=== PATIENT | male | born 1955 | race Caucasian/White ===

== ENCOUNTER 2025-08-16 16:27 | Inpatient (IN) | payer MEDICARE, OTHER ==
[~2025-08-16] VITALS: Ht 170.2 cm; Wt 99.1 kg
[~2025-08-16 16:27] MED LIST: AML5T PO; AMLO1TAB22 PO; BENA40TA71 PO; GABA-1250 PO; HYDR-2598 PO; INSLANTI SC; METF-372 PO; METO-159 PO; TAMS0.4C39 PO; ZOLP10TA6 PO
--- NOTE | 2025-08-16 18:31 | ED.PDOC ---
GI ASSESSMENT HPI Comments 70-year-old male who came to ER for nausea and vomiting. Patient states he has been having episodes of nausea and vomiting for the past 5 days. Was having dry heaving. Earlier today started having diarrhea as well. Chief Complaint: Nausea/Vomiting Time Seen by MD: 18:31 Primary Care Provider: Frida TRIANA Reviewed Notes: Nurses Notes Allergies: Coded Allergies: NO KNOWN ALLERGIES (Unverified , 04/09/11) Home Meds Active Scripts Amlodipine Besylate (NORVASC TABLET) 5 Mg Tb, 5 MG PO DAILY, #30 TAB Prov:JOCELYN SEXTON M.D. 04/23/14 Amlodipine Besylate (Amlodipine Besylate) 5 Mg Tab, 1 TAB PO DAILY, #30 TAB 5 Refills Prov:JOCELYN SEXTON M.D. 04/23/14 Benazepril Hcl (Benazepril Hcl) 40 Mg Tab, 80 MG PO DAILY, #30 Prov:BECKI GIORDANO N.P. 04/22/14 Reported Medications Tamsulosin Hcl (Tamsulosin Hcl) 0.4 Mg Cap, 0.4 MG PO QPM for 30 Days, MG 04/22/14 Metformin Hydrochloride (Metformin Hcl) 1,000 Mg Tab, 1 TAB PO BID, #60 TAB 5 Refills 04/22/14 Zolpidem Tartrate (Zolpidem Tartrate) 10 Mg Tab, 10 MG PO QPM, #90 04/22/14 Gabapentin (Gabapentin) 300 Mg Cap, 300 MG PO TID, #270 04/22/14 Metoprolol Tartrate (Metoprolol Tartrate) 100 Mg Tab, 100 MG PO BID, #180 04/22/14 Insulin Glargine (Lantus) 100 Units/Ml Vial, 50 UNITS SC QAM, #40 04/22/14 Hydrocodone-Acetaminophen (Hydrocodone/Acetaminophen) 1 Tab Tab, 1 TAB PO PRN, #60 04/22/14 Information Source: Patient Mode of Arrival: EMS Timing: Hours Duration: Since onset Past Medical History PAST MEDICAL HISTORY: DM, HTN Past Medical History (Other): Left foot diabetic ulcer Surgical History: Denies all surgeries Surgical History (Other): Cervical neck surgery, knee surgery Family History Family History: No family hx of DM Social History Smoker: Quit Greater Than 1 Year Alcohol: Occasionally Drugs: Denies Drug Use Lives In: Home Constitutional: denies: chills, diaphoresis, fatigue, fever, malaise, sweats, weakness, others EENTM: denies: blurred vision, double vision, ear bleeding, ear discharge, ear drainage, ear pain, ear ringing, eye pain, eye redness, hearing loss, mouth pain, mouth swelling, nasal discharge, nose bleeding, nose congestion, nose pain, photophobia, tearing, throat pain, throat swelling, voice changes, others Respiratory: denies: cough, hemoptysis, orthopnea, SOB at rest, shortness of breath, SOB with excertion, stridor, wheezing, others Cardiovascular: denies: chest pain, dizzy spells, diaphoresis, Dyspnea on exertion, edema, irregular heart beat, left arm pain, lightheadedness, palpitations, PND, syncope, others Gastrointestinal: reports: diarrhea, nausea, vomiting; denies: abdomen distended, abdominal pain, blood streaked bowels, constipated, dysphagia, difficulty swallowing, hematemesis, melena, poor appetite, poor fluid intake, rectal bleeding, rectal pain, others Genitourinary: denies: burning, dysuria, flank pain, frequency, hematuria, incontinence, penile discharge, penile sore, pain, testicle pain, testicle swelling, urgency, others Neurological: denies: dizziness, fainting, headache, left sided numbness, left sided weakness, numbness, paresthesia, pre-existing deficit, right sided numbness, right sided weakness, seizure, speech problems, tingling, tremors, weakness, others Musculoskeletal: denies: back pain, gout, joint pain, joint swelling, muscle pain, muscle stiffness, neck pain, others Integumetry: denies: bruises, change in color, change in hair/nails, dryness, laceration, lesions, lumps, rash, wounds, others Allergic/Immunocompromised: denies: Difficulty Healing, Frequent Infections, Hives, Itching, others Hematologic/Lymphatic: denies: anemia, blood clots, easy bleeding, easy bruising, swollen glands, others Psychiatric: denies: anxiety, bipolar disorder, depression, hopeless, panic disorder, schizophrenia, sleepless, suicidal, others Physical Exam General Appearance: No Apparent Distress, Normal HEENT: Normal ENT Inspection, Pharynx Normal, TMs Normal Neck: Full Range of Motion, Non-Tender, Normal, Normal Inspection Respiratory: Chest Non-Tender, No Accessory Muscle Use, No Respiratory Distress, Wheezing (Left lower lobe) Cardiovascular: No Edema, No JVD, No Murmur, No Gallop, Normal Peripheral Pulses, Regular Rate/Rhythm Breast Exam: Deferred Gastrointestinal: No Organomegaly, Non Tender, No Pulsatile Mass, Normal Bowel Sounds, Soft Genitalia: Deferred Pelvic: Deferred Rectal: Deferred Extremities: No calf tenderness, Normal capillary refill, Normal inspection, Normal range of motion, Non-tender, No pedal edema Musculoskeletal : Apperance: Normal Neurologic: Alert, pattern ruler II-XII nml as Tested, No Motor Deficits, Normal Affect, Normal Mood, No Sensory Deficits Cerebellar Function: Normal Reflexes: Normal Skin: Dry, Normal Color, Warm Lymphatic: No Adenopathy Was a procedure done? Was a procedure done?: No GI differential Dx Differential Diagnosis: Gastritis/PUD, Gastroenteritis, Pancreatitis, UTI, Dehydration, Electrolyte Imbalance, Food Poisoning X-Ray, Labs, Meds, VS Vital Signs Date Time Temp Pulse Resp B/P (MAP) Pulse Ox O2 Delivery O2 Flow Rate FiO2 08/16/25 19:38 98.8 102 16 135/90 98 98.8 08/16/25 16:40 117 Lab Test 08/16/25 20:53 08/16/25 19:03 Range/Units Lactic Acid Level 1.4 0.4-2.0 mmol/L White Blood Count 15.9 H 4.4-10.8 10^3/uL Red Blood Count 6.48 H 4.5-5.90 10^6/uL Hemoglobin 15.2 13.5-17.5 g/dL Hematocrit 47.7 41.0-53.0 % Mean Corpuscular Volume 73.6 L 80.0-100.0 fL Mean Corpuscular Hemoglobin 23.5 L 28.0-32.0 pg Mean Corpuscular Hemoglobin Concent 31.9 L 32.0-36.0 g/dL Red Cell Distribution Width 24.6 H 11.8-14.3 % Platelet Count 253 140-450 10^3/uL Mean Platelet Volume 8.1 6.9-10.8 fL Neutrophils (%) (Auto) 81.0 H 37.0-80.0 % Lymphocytes (%) (Auto) 10.6 10.0-50.0 % Monocytes (%) (Auto) 7.8 0.0-12.0 % Eosinophils (%) (Auto) 0.2 0.0-7.0 % Basophils (%) (Auto) 0.4 0.0-2.0 % Neutrophils # (Auto) 12.9 H 1.6-8.6 10 ^3/uL Lymphocytes # (Auto) 1.7 0.4-5.4 10 ^3/uL Monocytes # (Auto) 1.2 0-1.3 10 ^3/uL Eosinophils # (Auto) 0 0-0.8 10 ^3/uL Basophils # (Auto) 0.1 0-0.2 10 ^3/uL Nucleated Red Blood Cells 0.2 % Sodium Level 137 136-145 mmol/L Potassium Level 3.3 L 3.5-5.1 mmol/L Chloride Level 92 L 98-107 mmol/L Carbon Dioxide Level 34 H 20-31 mmol/L Anion Gap 11 5-15 Blood Urea Nitrogen 33 H 9-23 mg/dL Creatinine 1.03 0.700-1.30 mg/dL Glomerular Filtration Rate Calc 78 >90 mL/min BUN/Creatinine Ratio 32.0 H 10.0-20.0 Serum Glucose 195 H 74-106 mg/dL Calcium Level 10.2 8.7-10.4 mg/dL Troponin I High Sensitivity 18 </=54 ng/L EXAM: XY CHEST PORTABLE HISTORY: nausea vomiting TECHNIQUE: 1 view of the chest COMPARISON: XY CHEST TWO VIEWS ROUTINE on DOS: 12/03/24 FINDINGS/IMPRESSION: LUNGS: No pleural effusion, consolidation, or pneumothorax. peripheral interstitial edema suspected MEDIASTINUM: Unremarkable. BONES: No acute osseous abnormality. cervical posterior fusion hardware OTHER: None. Time of 1ST Reevaluation: 18:28 Reevaluation 1ST: Unchanged Patient Education/Counseling: Diagnosis, Treatment, Prognosis, Need For Follow Up Family Education/Counseling: No Family Present Comments This is a patient who has diabetes presents with nausea vomiting and diarrhea. When he presents he appears to be dehydrated with a tachycardia however his CBC shows he has leukocytosis. So far there is no source of an infection, however, patient does have gastroenteritis symptoms. Sepsis order has been started. Patient will be admitted for further treatment evaluation of potential sepsis and nausea vomiting diarrhea with diabetes. Patient is not in DKA. SEPSIS Sepsis Screen Date sepsis recognized/suspect: Aug 16, 2025 Time Sepsis recognized/suspect: 21:38 Recent Procedure: No On Antibiotic Therapy: No Respiratory Rate >20: No Heart Rate >90: Yes Temp<36 C (96.8 F) or >38.3 C: No SBP <90 or MAP <65 mmHG: No New Acute Mental Status Change: No Is the patient on CPAP, BIPAP,: No IV fluid challenge completed?: Yes Physician Orders Electrocardigram (08/16/25 16:45) Chest Portable (08/16/25 18:32) Urinalysis (08/16/25 18:32) Accucheck (08/16/25 18:32) Blood Culture (08/16/25 20:40) Urinalysis (08/16/25 21:37) Accucheck (08/16/25 21:37) Lactated Ringer's (08/16/25 21:45) Lactic Acid W/ Reflex Order (08/17/25 00:00) Cefepime 1gm/50ml (Maxipime 1gm/50ml) (08/16/25 21:45) Notify Md If Map <65 Or Bp<90 (08/16/25 21:37) If Map<65 Start Vasopressor (08/16/25 21:37) Sepsis Reassesment After Fluid (08/16/25 22:37) Vital Signs Date Time Temp Pulse Resp B/P (MAP) Pulse Ox O2 Delivery O2 Flow Rate FiO2 08/16/25 19:38 98.8 102 16 135/90 98 98.8 08/16/25 16:40 117 Laboratory Tests Test 08/16/25 19:03 08/16/25 20:53 White Blood Count 15.9 10^3/uL (4.4-10.8) H Lactic Acid Level 1.4 mmol/L (0.4-2.0) Reassessment Post Fluid Pulse Location: Radial Pulse Strength: Normal Capillary Refill Exam: < 3 seconds Skin Temperature: Warm Skin Moisture: Dry Skin Tugor: WNL Skin Color: WNL Fingernail Color: WNL Departure 1 Departure Time of Disposition: 21:40 Impression: Primary Impression: Sepsis Additional Impressions: Dehydration Nausea vomiting and diarrhea Diabetes Hyperglycemia Disposition: ADMITTED INPATIENT Admit to: Med Surg Condition: Serious Discharged With: Self Critical Care Note Critical Care Time?: Yes (55 min-critical care time only) Critical care comment: Due to concerns for patients condition deteriorating, the care required my highest level of attention and readiness to intervene. I assessed the patient, reviewed the medical records, ordered the appropriate tests and treatments, then reassessed for results and responsiveness. I communicated with medical personnel and consultants and formulated a plan of care. Total critical care time excludes any procedures Stability Stability form required: No Heart Score Heart Score: Heart Score Response (Comments) Value History N/A 0 EKG N/A 0 Age N/A 0 Risk Factors N/A 0 Troponin N/A 0 Total 0 I personally scribed for CHENG SALMERON MD ([email or web address]) on 08/16/25 at 18:31. Electronically submitted by Onel García ([employer]). I personally scribed for CHENG SALMERON MD ([email or web address]) on 08/16/25 at 21:44. Electronically submitted by Onel García ([email or web address]). CHENG SALMERON MD Aug 16, 2025 18:31
[2025-08-16] MEDS ORDERED: SODIUM CHLORIDE 0.9% 1,000 ML IV ONE (18:45)
[2025-08-16 19:17] LABS: Hematocrit 47.7 % (41.0-53.0); Hemoglobin 15.2 g/dL (13.5-17.5); Mean Corpuscular Hemoglobin 23.5 pg (28.0-32.0); Mean Corpuscular Volume 73.6 fL (80.0-100.0); Nucleated Red Blood Cells % 0.2 %
[2025-08-16 19:30] LABS: Sodium 137 mmol/L (136-145)
[2025-08-16 19:31] LABS: Anion Gap 11 (5-15); Calcium 10.2 mg/dL (8.7-10.4)
[2025-08-16 19:36] LABS: BUN/Creatinine Ratio 32.0 (10.0-20.0)
[2025-08-16 19:38] LABS: Blood Urea Nitrogen 33 mg/dL (9-23); Carbon Dioxide 34 mmol/L (20-31); Chloride 92 mmol/L (98-107); Glucose 195 mg/dL (74-106); Potassium 3.3 mmol/L (3.5-5.1)
--- NOTE | 2025-08-16 21:18 | DVH ---
EXAM: XY CHEST PORTABLE HISTORY: nausea vomiting TECHNIQUE: 1 view of the chest COMPARISON: XY CHEST TWO VIEWS ROUTINE on DOS: 12/03/24 FINDINGS/IMPRESSION: LUNGS: No pleural effusion, consolidation, or pneumothorax. peripheral interstitial edema suspected MEDIASTINUM: Unremarkable. BONES: No acute osseous abnormality. cervical posterior fusion hardware OTHER: None.
[2025-08-16] MEDS ORDERED: CEFEPIME 1GM/50ML 50 ML IV ONE (21:45)
[2025-08-16 22:06] VITALS: PULSE 98; RESP 18; O2SAT 98
[2025-08-16] MEDS: CEFEPIME 1GM/50ML 50 ML IV ONE (22:08)
[2025-08-16] MEDS: ONDANSETRON HCL 4 MG/2 ML VIAL IV ONE (22:08)
[2025-08-16] MEDS: LACTATED RINGER'S 2,000 ML IV ONE (22:08)
[2025-08-16] MEDS ORDERED: DOCUSATE SOD 100 MG CAP PO PRN (22:45)
[2025-08-16] MEDS: SODIUM CHLORIDE 0.9% 1,000 ML IV SCH (22:45)
[2025-08-16] MEDS ORDERED: HYDROcodone-ACET 5/325MG TAB PO PRN (22:45)
[2025-08-16] MEDS: POTASSIUM CHL 20MEQ/100ML 100 ML IV ONE (22:45)
[2025-08-16] MEDS ORDERED: ACETAMINOPHEN 325 MG TAB PO PRN (22:45)
[2025-08-16] MEDS ORDERED: DEXTROSE (50%) 50ML SYRG IV PRN (22:45)
--- NOTE | 2025-08-16 23:53 | DVHHP2 ---
History of Present Illness Reason for Visit: Nausea vomiting and diarrhea History of Present Illness The patient is a 70-year-old male with past medical history of hypertension and diabetes mellitus who presented to [facility] ED with complaint of nausea and vomiting. Patient reports that he has been having episodes of intractable nausea and vomiting for the past 5 days associated with dry heaving and diarrhea. Patient was seen and evaluated in the ED, laboratory data shows WBC 15.9, platelets 253, sodium 137, potassium 3.3, BUN 33, creatinine 1.03, GFR 78, glucose 195, calcium 10.2, troponin 18, lactic acid 1.4, blood pressure 136/100, heart rate 98, temperature 97.7 F, O2 saturation 98% on room air. Chest x-ray showed no pleural effusion, consolidation, or pneumothorax; peripheral interstitial edema suspected. Patient was started on IV antibiotic regimen cefepime, please see medication orders section in the computer. On my assessment, patient denied chest pain, no headache, dizziness, diaphoresis, shortness of breaths, no abdominal pain, diarrhea, nausea, vomiting, fever, no chills. Patient was admitted for further evaluation and medical management. Past Medical History DM, HTN, Left foot diabetic ulcer Past Surgical History Cervical neck surgery, Knee surgery Family History Reviewed, noncontributory to the management of this case. Past Social History The patient lives at home, denies smoking, alcohol or illicit drugs abuse. Review of Systems Constitutional: Yes: Weakness; No: Fever, Chills, Sweats, Malaise, Other Eyes: No: Pain, Vision change, Conjunctivae inflammation, Eyelid inflammation, Other, Redness ENT: No: Ear pain, Ear discharge, Nose pain, Nose discharge, Nose congestion, Mouth pain, Mouth swelling, Throat pain, Throat swelling, Other Respiratory: No: Cough, Dry, Shortness of breath, SOB with excertion, Wheezing, Hemoptysis, Pleuritic Pain, Sputum, Wheezing, Other Cardiovascular: No: Chest Pain, Palpitations, Orthopnea, Paroxysmal Noc. Dyspnea, Edema, Lt Headedness, Other Gastrointestinal: Nausea, Vomiting; No: Abdominal Pain, Diarrhea, Constipation, Melena, Hematochezia, Other Genitourinary: No Dysuria, No Frequency, No Incontinence, No Hematuria, No Retention, No Other Musculoskeletal: No: other, neck pain, shoulder pain, arm pain, back pain, hand pain, leg pain, foot pain Skin: Other (Foot ulcer); No: Rash, Lesions, Jaundice, Bruising Neurological: No: Weakness, Numbness, Incoordination, Change in speech, Confusion, Seizures, Other Allergies: Coded Allergies: NO KNOWN ALLERGIES (Unverified , 04/09/11) Medications Current Medications Medications Dose Ordered Sig/Beverly Route Start Time Stop Time Status Last Admin Dose Admin Amlodipine Besylate 5 mg DAILY PO 08/17/25 10:00 Gabapentin 300 mg TID PO 08/17/25 06:00 Lisinopril 20 mg DAILY PO 08/17/25 10:00 Ceftriaxone Sodium 50 ml @ 100 mls/hr DAILY@09 IV 08/17/25 09:00 Diagnostic Test (Pha) 1 strip ACHS 08/17/25 07:00 Insulin Human Regular HS SC 08/17/25 22:00 Insulin Human Regular AC SC 08/17/25 07:00 Dextrose 50 ml UD PRN IV 08/16/25 22:45 Sodium Chloride 1,000 ml @ 60 mls/hr [id number] IV 08/16/25 22:45 Acetaminophen/ Hydrocodone Bitart 1 tab Q4HP PRN PO 08/16/25 22:45 Ondansetron HCl 4 mg Q4HP PRN IV 08/16/25 22:45 Docusate Sodium 100 mg BIDPRN PRN PO 08/16/25 22:45 Acetaminophen 650 mg Q6HP PRN PO 08/16/25 22:45 Exam Vital Signs Vital Signs Date Time Temp Pulse Resp B/P (MAP) Pulse Ox O2 Delivery O2 Flow Rate FiO2 08/16/25 22:06 97.7 98 18 136/100 (112) 98 97.7 08/16/25 22:06 Room Air* 0 21 General Appearance: Alert, Oriented X3, Cooperative, No acute distress HEENT: Atraumatic, PERRLA, EOMI, Mucous membr. moist/pink Respiratory: Normal air movement Cardiovascular: Regular rate, Normal S1, Normal S2, No murmurs Abdominal: Normal bowel sounds, Soft, No tenderness, No hepatospenomegaly, No masses Extremities: No clubbing, No cyanosis, No edema, Normal pulses, No tenderness/swelling Skin: No rashes, No significant lesion Neuro: Normal speech, Normal tone, Sensation intact, Cranial nerves 3-12 NL, Reflexes 2+, Other (Generalized weakness) Psych/Mental Status: Mental status NL, Mood NL Labs/Xrays Labs Test 08/16/25 20:53 08/16/25 19:03 Range/Units Lactic Acid Level 1.4 0.4-2.0 mmol/L White Blood Count 15.9 H 4.4-10.8 10^3/uL Red Blood Count 6.48 H 4.5-5.90 10^6/uL Hemoglobin 15.2 13.5-17.5 g/dL Hematocrit 47.7 41.0-53.0 % Mean Corpuscular Volume 73.6 L 80.0-100.0 fL Mean Corpuscular Hemoglobin 23.5 L 28.0-32.0 pg Mean Corpuscular Hemoglobin Concent 31.9 L 32.0-36.0 g/dL Red Cell Distribution Width 24.6 H 11.8-14.3 % Platelet Count 253 140-450 10^3/uL Mean Platelet Volume 8.1 6.9-10.8 fL Neutrophils (%) (Auto) 81.0 H 37.0-80.0 % Lymphocytes (%) (Auto) 10.6 10.0-50.0 % Monocytes (%) (Auto) 7.8 0.0-12.0 % Eosinophils (%) (Auto) 0.2 0.0-7.0 % Basophils (%) (Auto) 0.4 0.0-2.0 % Neutrophils # (Auto) 12.9 H 1.6-8.6 10 ^3/uL Lymphocytes # (Auto) 1.7 0.4-5.4 10 ^3/uL Monocytes # (Auto) 1.2 0-1.3 10 ^3/uL Eosinophils # (Auto) 0 0-0.8 10 ^3/uL Basophils # (Auto) 0.1 0-0.2 10 ^3/uL Nucleated Red Blood Cells 0.2 % Sodium Level 137 136-145 mmol/L Potassium Level 3.3 L 3.5-5.1 mmol/L Chloride Level 92 L 98-107 mmol/L Carbon Dioxide Level 34 H 20-31 mmol/L Anion Gap 11 5-15 Blood Urea Nitrogen 33 H 9-23 mg/dL Creatinine 1.03 0.700-1.30 mg/dL Glomerular Filtration Rate Calc 78 >90 mL/min BUN/Creatinine Ratio 32.0 H 10.0-20.0 Serum Glucose 195 H 74-106 mg/dL Calcium Level 10.2 8.7-10.4 mg/dL Troponin I High Sensitivity 18 </=54 ng/L PATIENT: RADHA HERNANDEZ ACCT: [id number] UNIT: [id number] : 1955 LOC: ER ROOM / BED: / AGE / SEX: 70 / M ADM STATUS: REG ER SERVICE 31 ORDERING PHYSICIAN: CHENG SALMERON MD PROCEDURE(s): CXRP - CHEST PORTABLE REASON: nausea vomiting ORDER NUMBER(s): [id number], ACCESSION NUMBER(s): [id number] EXAM: XY CHEST PORTABLE HISTORY: nausea vomiting TECHNIQUE: 1 view of the chest COMPARISON: XY CHEST TWO VIEWS ROUTINE on DOS: 12/03/24 FINDINGS/IMPRESSION: LUNGS: No pleural effusion, consolidation, or pneumothorax. peripheral interstitial edema suspected MEDIASTINUM: Unremarkable. BONES: No acute osseous abnormality. cervical posterior fusion hardware SEPSIS Sepsis Screen Date sepsis recognized/suspect: Aug 16, 2025 Time Sepsis recognized/suspect: 2205 Recent Procedure: No On Antibiotic Therapy: Yes Respiratory Rate >20: No Heart Rate >90: Yes Temp<36 C (96.8 F) or >38.3 C: No SBP <90 or MAP <65 mmHG: No New Acute Mental Status Change: No Is the patient on CPAP, BIPAP,: No IV fluid challenge completed?: Yes Physician Orders Electrocardigram (08/16/25 16:45) Chest Portable (08/16/25 18:32) Urinalysis (08/16/25 18:32) Accucheck (08/16/25 18:32) Blood Culture (08/16/25 20:40) Urinalysis (08/16/25 21:37) Accucheck (08/16/25 21:37) Lactic Acid W/ Reflex Order (08/17/25 00:00) Notify Md If Map <65 Or Bp<90 (08/16/25 21:37) If Map<65 Start Vasopressor (08/16/25 21:37) Sepsis Reassesment After Fluid (08/16/25 22:37) Wound Culture W/ Gs (08/16/25 22:27) Amlodipine Tablet (Norvasc Tablet) (08/17/25 10:00) Gabapentin Capsule (Neurontin Capsule) (08/17/25 06:00) Lisinopril Tablet (Zestril Tablet) (08/17/25 10:00) Consistent Carb(Ccho)Diabetes (08/17/25 Breakfast) Potassium Chl 20meq/100ml (08/16/25 22:45) Ceftriaxone 1gm/50ml (Rocephin) (08/17/25 09:00) Glucose Blood (Accu-Chek Comfort Curve T (08/17/25 07:00) Insulin R (Human) (Insulin R) (08/17/25 22:00) Insulin R (Human) (Insulin R) (08/17/25 07:00) Dextrose 50% Syringe (08/16/25 22:45) Allergies (08/16/25 22:44) Code Status (08/16/25 22:44) Sodium Chloride 0.9% (08/16/25 22:45) Oxygen Per Hour (08/16/25 22:44) Hydrocodone-Acet 5/325mg Tab (Clarion 5/32 (08/16/25 22:45) Ondansetron Hcl (Zofran) (08/16/25 22:45) Docusate Sodium Capsule (Colace Capsule) (08/16/25 22:45) Fall Risk Precautions In Place QSHIFT (08/16/25 22:44) Complete Blood Count (08/17/25 04:00) Comprehensive Metabolic Panel (08/17/25 04:00) Condition: Serious (08/16/25 22:44) Acetaminophen Tablet (Tylenol Tablet) (08/16/25 22:45) Maintain Bed Rest (08/16/25 22:44) Sequential Compression Device (08/16/25 ) Admit (08/16/25 23:52) Nitroglycerin Sublingual (Ntrostat Subli (08/17/25 00:00) Morphine Sulfate Injection (08/17/25 00:00) Notify Md Of Changes From Base (08/16/25 23:52) Bottom Pounder Cement Shoes For 24 Hours (08/16/25 23:52) Emergency Dysrhythmia Protocol (08/16/25 23:52) Oxygen By Nasal Cannula (08/16/25 23:52) Vital Signs Date Time Temp Pulse Resp B/P (MAP) Pulse Ox O2 Delivery O2 Flow Rate FiO2 08/16/25 22:06 97.7 98 18 136/100 (112) 98 97.7 08/16/25 22:06 98 18 98 Room Air* 0 21 08/16/25 19:38 98.8 102 16 135/90 98 98.8 08/16/25 16:40 117 Laboratory Tests Test 08/16/25 19:03 08/16/25 20:53 White Blood Count 15.9 10^3/uL (4.4-10.8) H Lactic Acid Level 1.4 mmol/L (0.4-2.0) Medications Medications Dose Ordered Sig/Beverly Route Start Time Stop Time Status Last Admin Dose Admin Cefepime HCl 50 ml @ 50 mls/hr ONCE ONCE IV 08/16/25 22:00 08/16/25 22:59 DC 08/16/25 22:08 50 MLS/HR Lactated Ringer's 2,000 ml @ 2,000 mls/hr ONCE ONCE IV 08/16/25 21:45 08/16/25 22:44 DC 08/16/25 22:08 2,000 MLS/HR Ondansetron HCl 4 mg ONCE ONCE IV 08/16/25 18:45 08/16/25 18:46 DC 08/16/25 22:08 4 MG Reassessment Post Fluid Pulse Location: Radial Pulse Strength: Normal Capillary Refill Exam: < 3 seconds Skin Temperature: Warm Skin Moisture: Dry Skin Tugor: WNL Skin Color: WNL Fingernail Color: WNL Assessment/Plan Assessment/Plan Nausea vomiting and diarrhea Dehydration Hypokalemia Leukocytosis, unspecified Diabetes mellitus with hyperglycemia Generalized weakness Plan 1. Admit to med surge unit 2. Breathing treatment 3. Pain control management 4. IV antibiotic management 5. Management of fluids and electrolytes 6. Consultation for hospitalist/wound care 7. Diagnostic test chest x-ray 8. DVT prophylaxis on SCDs 9. Repeat labs CBC, CMP in a.m. 10. Home medication reviewed and reconciled 11. Continue with current medical management 12. Treatment plan discussed with patient and RN. Patient verbalized understanding. Plan discussed with: Patient, Other (RN) My Orders Orders - OKPAN,TIO O DNP Procedure Category Date Status Time Amlodipine Tablet PHA 08/17/25 In Process (Norvasc Tablet) 10:00 Gabapentin Capsule PHA 08/17/25 In Process (Neurontin Capsule) 06:00 Lisinopril Tablet PHA 08/17/25 In Process (Zestril Tablet) 10:00 Consistent DIET 08/17/25 Transmitted Carb(Ccho)Diabetes Breakfast Potassium Chl PHA 08/16/25 In Process 20meq/100ml 22:45 Ceftriaxone 1gm/50ml PHA 08/17/25 In Process (Rocephin) 09:00 Glucose Blood PHA 08/17/25 In Process (Accu-Chek Comfort 07:00 Insulin R (Human) PHA 08/17/25 In Process (Insulin R) 22:00 Insulin R (Human) PHA 08/17/25 In Process (Insulin R) 07:00 Dextrose 50% Syringe PHA 08/16/25 In Process 22:45 Allergies MORRIS 08/16/25 In Process 22:44 Code Status CODE 08/16/25 Transmitted 22:44 Sodium Chloride 0.9% PHA 08/16/25 In Process 22:45 Oxygen Per Hour RT 08/16/25 Transmitted 22:44 Hydrocodone-Acet PHA 08/16/25 In Process 5/325mg Tab (Clarion 22:45 Ondansetron Hcl PHA 08/16/25 In Process (Zofran) 22:45 Docusate Sodium PHA 08/16/25 In Process Capsule (Colace 22:45 Fall Risk Precautions MORRIS 08/16/[address] 22:44 Complete Blood Count LAB 08/17/25 Verified 04:00 Comprehensive LAB 08/17/25 Verified Metabolic Panel 04:00 Condition: Serious MORRIS 08/16/25 In Process 22:44 Acetaminophen Tablet PHA 08/16/25 In Process (Tylenol Tablet) 22:45 Maintain Bed Rest MORRIS 08/16/25 In Process 22:44 Sequential MORRIS 08/16/25 In Process Compression Device Admit ADMIT 08/16/25 Verified 23:52 Nitroglycerin PHA 08/17/25 Verified Sublingual (Ntrostat 00:00 Morphine Sulfate PHA 08/17/25 Verified Injection 00:00 Notify Of Changes MORRIS 08/16/25 Verified From Base 23:52 Bottom Pounder Cement Shoes For MORRIS 08/16/25 Verified 24 Hours 23:52 Emergency Dysrhythmia MORRIS 08/16/25 Verified Protocol 23:52 Oxygen By Nasal RT 08/16/25 Verified Cannula 23:52 Problem List: (1) Nausea vomiting and diarrhea (2) Dehydration (3) Hypokalemia (4) Leukocytosis, unspecified (5) Diabetes mellitus with hyperglycemia (6) Generalized weakness Date of Service: Aug 16, 2025 Billing Provider: TIO PICHARDO DNP Common Visit Codes: [id number] INP/OBS CARE (HIGH) TIO PICHARDO DNP Aug 16, 2025 23:53
[2025-08-17] VITALS (8 sets, daily range): BP systolic 128–161; BP diastolic 76–94; PULSE 84–107; RESP 16–19; TEMP 97.5–98.5; O2SAT 92–98
[2025-08-17] MEDS ORDERED: NITROGLYCERIN 0.4 MG SL TAB SL PRN
[2025-08-17] MEDS ORDERED: MORPHINE SULFATE INJ 2 MG/ml SYRG IV PRN
[2025-08-17 02:41] LABS: Hematocrit 45.8 % (41.0-53.0); Hemoglobin 14.6 g/dL (13.5-17.5); Mean Corpuscular Hemoglobin 23.8 pg (28.0-32.0); Mean Corpuscular Volume 74.5 fL (80.0-100.0); Nucleated Red Blood Cells % 0.1 %
[2025-08-17 02:57] LABS: Alanine Aminotransferase 22 U/L (7-40); Albumin 3.9 g/dL (3.2-4.8); Anion Gap 11 (5-15); BUN/Creatinine Ratio 28.0 (10.0-20.0); Calcium 9.9 mg/dL (8.7-10.4); Sodium 138 mmol/L (136-145); Total Protein 6.6 g/dL (5.7-8.2)
[2025-08-17 02:58] LABS: Bilirubin, Total 0.9 mg/dL (0.2-1.0)
[2025-08-17 03:03] LABS: Alkaline Phosphatase 116 U/L (46-116); Blood Urea Nitrogen 28 mg/dL (9-23); Carbon Dioxide 34 mmol/L (20-31); Chloride 93 mmol/L (98-107); Glucose 215 mg/dL (74-106); Potassium 3.2 mmol/L (3.5-5.1)
[2025-08-17] MEDS: GABAPENTIN 300 MG CAP PO SCH (06:38)
[2025-08-17] MEDS: ACCU-CHEK COMFORT CURVE STRIP VI SCH (06:43)
[2025-08-17] MEDS: InsuLIN REG 1unit/0.01ml Soln (100units/ml) SC SCH ×2 (06:43→21:33)
[2025-08-17 08:10] LABS: Urine Protein, UAD TRACE (Negative)
[2025-08-17] MEDS: LISINOPRIL 20 MG TAB PO SCH (09:37)
--- NOTE | 2025-08-17 12:39 | DVHPN2 ---
Reviewed: Care Plan, H&P, Labs, Medications, Previous Orders, Radiology Changes from previous H/P or p: No Changes Eyes: No Pain, No Vision change, No Conjunctivae inflammation, No Eyelid inflammation, No Other, No Redness ENT: No Ear pain, No Ear discharge, No Nose pain, No Nose discharge, No Nose congestion, No Mouth pain, No Mouth swelling, No Throat pain, No Throat swelling, No Other Cardiovascular: No Chest Pain, No Palpitations, No Orthopnea, No Paroxysmal Noc. Dyspnea, No Edema, No Lt Headedness, No Other Respiratory: No Cough, No Dry, No Shortness of breath, No SOB with excertion, No Wheezing, No Hemoptysis, No Pleuritic Pain, No Sputum, No Other Gastrointestinal: Nausea, Vomiting; No Abdominal Pain, No Diarrhea, No Constipation, No Melena, No Hematochezia, No Other Genitourinary: No Dysuria, No Frequency, No Incontinence, No Hematuria, No Retention, No Other Musculoskeletal: No other, No neck pain, No shoulder pain, No arm pain, No back pain, No hand pain, No leg pain, No foot pain Skin: No Rash, No Lesions, No Jaundice, No Bruising; Other (Foot ulcer) Objective Vitals Vital Signs Date Time Temp Pulse Resp B/P (MAP) Pulse Ox O2 Delivery O2 Flow Rate FiO2 08/17/25 09:37 161/86 08/17/25 09:00 98.0 107 18 92 98.0 08/17/25 08:00 Nasal Cannula* 2 28 Intake/Output Intake and Output 08/17/25 06:59 Intake Total 2050 ml Balance 2050 ml Intake IV Total 2050 ml Medications Current Medications Medications Dose Ordered Sig/Beverly Route Start Time Stop Time Status Last Admin Dose Admin Amlodipine Besylate 5 mg DAILY PO 08/17/25 10:00 08/17/25 09:36 5 MG Gabapentin 300 mg TID PO 08/17/25 06:00 08/17/25 06:38 300 MG Lisinopril 20 mg DAILY PO 08/17/25 10:00 08/17/25 09:37 20 MG Ceftriaxone Sodium 50 ml @ 100 mls/hr DAILY@09 IV 08/17/25 09:00 08/17/25 09:36 100 MLS/HR Diagnostic Test (Pha) 1 strip ACHS 08/17/25 07:00 12/7/25 11:36 1 STRIP Insulin Human Regular HS SC 08/17/25 22:00 Insulin Human Regular AC SC 08/17/25 07:00 08/17/25 11:47 6 UNITS Dextrose 50 ml UD PRN IV 08/16/25 22:45 Sodium Chloride 1,000 ml @ 60 mls/hr [id number] IV 08/16/25 22:45 Acetaminophen/ Hydrocodone Bitart 1 tab Q4HP PRN PO 08/16/25 22:45 Ondansetron HCl 4 mg Q4HP PRN IV 08/16/25 22:45 Docusate Sodium 100 mg BIDPRN PRN PO 08/16/25 22:45 Acetaminophen 650 mg Q6HP PRN PO 08/16/25 22:45 Nitroglycerin 0.4 mg Q5MINP PRN SL 08/17/25 00:00 Morphine Sulfate 2 mg Q30M PRN IV 08/17/25 00:00 Laboratory Results Laboratory Tests 08/17/25 02:34 Chemistry Test 08/16/25 19:03 08/17/25 02:34 Calcium Level 10.2 mg/dL (8.7-10.4) 9.9 mg/dL (8.7-10.4) Albumin 3.9 g/dL (3.2-4.8) Total Protein 6.6 g/dL (5.7-8.2) LFT Test 08/17/25 02:34 Alanine Aminotransferase (ALT) 22 U/L (7-40) Alkaline Phosphatase 116 U/L (46-116) Aspartate Amino Transferase (AST) 17 U/L (13-40) Total Bilirubin 0.9 mg/dL (0.2-1.0) Urinalysis Test 08/17/25 08:00 Urine Color Yellow (Yellow) Urine Clarity Clear (Clear) Urine pH 6.0 (5.0-9.0) Urine Specific [place] 1.031 (1.001-1.035) Urine Protein Trace (Negative) H Urine Ketones 2+ (Negative) H Urine Blood Negative /uL (Negative) Urine Nitrite Negative (Negative) Urine Bilirubin Negative (Negative) Urine Urobilinogen 2 mg/dL (Negative) H Urine Leukocyte Esterase Negative /uL (Negative) Urine RBC 1 /hpf (0 - 3) Urine Microscopic WBC 1 /HPF (0-3) Urine Squamous Epithelial Cells Few /hpf (<5) Urine Bacteria None seen /hpf (None Seen) Urine Glucose 4+ mg/dL (Normal) H Labs and/or images reviewed: Labs reviewed by me, Image(s) reviewed by me Assessment/Plan Assessment/Plan Sepsis unknown etiology Acute abdominal pain nausea vomiting and diarrhea check lipase, CT abdomen pelvis without contrast Possible acute Gastroenteritis: Rocephin Flagyl IV Diabetes: Insulin sliding scale Acute Hypokalemia: Potassium 3.2: Replace potassium Acute dehydration: LR 150 per hour Hypertension Chronic left foot ulcer Flu test pending COVID test pending Time spent 70 minutes Advanced care planning time 20 minutes Patient is full code Plan discussed with: Patient My Orders Orders - JHON HAIR MD Procedure Category Date Status Time Covid19 Antigen [facility] LAB 08/17/25 Logged Rapid Influenza A&B LAB 08/17/25 Logged 12:34 Ct Ab Pel Wo Con-No CT 08/17/25 Logged Oral Or Iv 12:34 Metronidazole Ivpb PHA 08/17/25 Transmitted Flagyl 14:00 Date of Service: Aug 17, 2025 Billing Provider: JHON HAIR MD Common Visit Codes: [id number] CARE 30-74 MIN JHON HAIR MD Aug 17, 2025 12:38
--- NOTE | 2025-08-17 13:31 | DVH ---
EXAM: CT CT AB PEL WO CON-NO ORAL OR IV INDICATION: Nausea vomiting and diarrhea TECHNIQUE: Volumetric multidetector CT images of the abdomen and pelvis were obtained without contrast. All CT scans at this facility use dose modulation, iterative reconstruction, and/or weight based dosing when appropriate to reduce radiation dose to as low as reasonably achievable. COMPARISON: None FINDINGS: [LOWER CHEST]: The partially visualized lung bases are clear without a pleural effusion. The cardiac size is normal without pericardial effusion. [LIVER]: Normal hepatic size without suspicious focal lesion. [GALLBLADDER AND BILIARY TREE]: No cholelithiasis. [SPLEEN]: Unremarkable. [PANCREAS]: Inflammatory stranding along the margin of the pancreatic head. Correlate with clinical exam for pancreatitis. [ADRENAL GLANDS]: Unremarkable [KIDNEYS]: No hydronephrosis. No nephroureterolithiasis. No suspicious focal lesion. [BLADDER]: Unremarkable for the degree distention. [REPRODUCTIVE ORGANS]: Unremarkable. [BOWEL/MESENTERY]: Significant inflammatory stranding and thickening at the level of the duodenum with inconspicuous air-fluid level. Superimposed duodenal ulcer not excluded. No intraperitoneal free air. No adjacent abnormal drainable fluid collection. Minimal sigmoid diverticulosis. Normal appendix. Stomach is normal. No CT evidence of bowel obstruction. [ASCITES]: Absent [LYMPHADENOPATHY]: No pathologically enlarged lymph nodes by CT size criteria [VASCULATURE]: No aneurysmal dilatation. [ABDOMINAL WALL]: Unremarkable. [MUSCULOSKELETAL]: No acute fracture or aggressive focal osseous lesion. Multifocal degenerative change of the visualized spine. IMPRESSION: 1. Significant inflammatory stranding and thickening at the level of the duodenum with inconspicuous air-fluid level. 2. Superimposed duodenal ulcer not excluded. 3. Inflammatory stranding along the margin of the pancreatic head. 4. Correlate with clinical exam for pancreatitis.
[2025-08-17] MEDS: LACTATED RINGER'S 1,000 ML IV SCH (16:10)
[2025-08-17 16:45] LABS: COVID19 ANTIGEN SOFIA FIA NEGATIVE (NEGATIVE)
[2025-08-18] VITALS (8 sets, daily range): BP systolic 114–176; BP diastolic 70–96; PULSE 78–90; RESP 17–20; TEMP 97.5–98.8; O2SAT 92–100
--- NOTE | 2025-08-18 09:12 | ECG ---
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
--- NOTE | 2025-08-18 13:02 | DVHPN2 ---
Reviewed: Care Plan, H&P, Labs, Medications, Previous Orders, Radiology Changes from previous H/P or p: No Changes Eyes: No Pain, No Vision change, No Conjunctivae inflammation, No Eyelid inflammation, No Other, No Redness ENT: No Ear pain, No Ear discharge, No Nose pain, No Nose discharge, No Nose congestion, No Mouth pain, No Mouth swelling, No Throat pain, No Throat swelling, No Other Cardiovascular: No Chest Pain, No Palpitations, No Orthopnea, No Paroxysmal Noc. Dyspnea, No Edema, No Lt Headedness, No Other Respiratory: No Cough, No Dry, No Shortness of breath, No SOB with excertion, No Wheezing, No Hemoptysis, No Pleuritic Pain, No Sputum, No Other Gastrointestinal: Nausea, Vomiting Genitourinary: No Dysuria, No Frequency, No Incontinence, No Hematuria, No Retention, No Other Musculoskeletal: No other, No neck pain, No shoulder pain, No arm pain, No back pain, No hand pain, No leg pain, No foot pain Skin: Other Objective Vitals Vital Signs Date Time Temp Pulse Resp B/P (MAP) Pulse Ox O2 Delivery O2 Flow Rate FiO2 08/18/25 12:40 98.0 89 20 156/86 (109) 92 98.0 08/18/25 08:00 Room Air* 0 21 Intake/Output Intake and Output 08/18/25 07:00 Intake Total 2200 ml Output Total 800 ml Balance 1400 ml Intake Oral 675 ml IV Total 1525 ml Output Urine Total 800 ml Medications Current Medications Medications Dose Ordered Sig/Beverly Route Start Time Stop Time Status Last Admin Dose Admin Amlodipine Besylate 5 mg DAILY PO 08/17/25 10:00 08/18/25 08:46 5 MG Gabapentin 300 mg TID PO 08/17/25 06:00 08/17/25 06:38 300 MG Lisinopril 20 mg DAILY PO 08/17/25 10:00 08/18/25 08:46 20 MG Ceftriaxone Sodium 50 ml @ 100 mls/hr DAILY@09 IV 08/17/25 09:00 08/18/25 08:45 100 MLS/HR Diagnostic Test (Pha) 1 strip ACHS 08/17/25 07:00 08/18/25 11:15 1 STRIP Insulin Human Regular HS SC 08/17/25 22:00 08/17/25 21:33 3 UNITS Insulin Human Regular AC SC 08/17/25 07:00 08/18/25 11:15 3 UNITS Dextrose 50 ml UD PRN IV 08/16/25 22:45 Acetaminophen/ Hydrocodone Bitart 1 tab Q4HP PRN PO 08/16/25 22:45 Ondansetron HCl 4 mg Q4HP PRN IV 08/16/25 22:45 Docusate Sodium 100 mg BIDPRN PRN PO 08/16/25 22:45 Acetaminophen 650 mg Q6HP PRN PO 08/16/25 22:45 Nitroglycerin 0.4 mg Q5MINP PRN SL 08/17/25 00:00 Morphine Sulfate 2 mg Q30M PRN IV 08/17/25 00:00 Metronidazole 100 ml @ 100 mls/hr Q8HR IV 08/17/25 14:00 08/18/25 06:15 100 MLS/HR Lactated Ringer's 1,000 ml @ 125 mls/hr Q8H IV 08/17/25 12:45 08/18/25 01:20 125 MLS/HR Laboratory Results Laboratory Tests 08/17/25 02:34 Urinalysis Test 08/17/25 08:00 Urine Color Yellow (Yellow) Urine Clarity Clear (Clear) Urine pH 6.0 (5.0-9.0) Urine Specific Sylvia 1.031 (1.001-1.035) Urine Protein Trace (Negative) H Urine Ketones 2+ (Negative) H Urine Blood Negative /uL (Negative) Urine Nitrite Negative (Negative) Urine Bilirubin Negative (Negative) Urine Urobilinogen 2 mg/dL (Negative) H Urine Leukocyte Esterase Negative /uL (Negative) Urine RBC 1 /hpf (0 - 3) Urine Microscopic WBC 1 /HPF (0-3) Urine Squamous Epithelial Cells Few /hpf (<5) Urine Bacteria None seen /hpf (None Seen) Urine Glucose 4+ mg/dL (Normal) H Microbiology Microbiology Date/Time Source Procedure Growth Status 08/16/25 22:27 Foot Left Gram Stain - Final Resulted 08/16/25 22:27 Foot Left Wound Culture - Preliminary Resulted 08/16/25 21:00 Blood Blood Culture - Preliminary NO GROWTH AFTER 24 HOURS OF INCUBATION. Resulted Labs and/or images reviewed: Labs reviewed by me, Image(s) reviewed by me Assessment/Plan Assessment/Plan Sepsis unknown etiology Acute abdominal pain nausea vomiting and diarrhea check lipase normal, CT abdomen pelvis without contrast shows possible duodenal ulcer, GI consult for Dr. Amarilis Parra; pantoprazole 40 mg IV b.i.d. Possible acute Gastroenteritis: Rocephin Flagyl IV Diabetes: Insulin sliding scale Acute Hypokalemia: Potassium 3.2: Replace potassium Acute dehydration: LR 150 per hour Hypertension Chronic left foot ulcer Flu test negative COVID test negative Time spent 50 minutes Advanced care planning time 20 minutes Patient is full code Plan discussed with: Patient My Orders Orders - JHON HAIR MD Procedure Category Date Status Time * Wound Consult CONS 08/17/25 Transmitted *Podiatry Consult CONS 08/17/25 Transmitted [facility]) 14:14 Date of Service: Aug 18, 2025 Billing Provider: JHON HAIR MD Common Visit Codes: [id number] INP/OBS CARE(HIGH) JHON HAIR MD Aug 18, 2025 13:02
--- NOTE | 2025-08-18 14:28 | DVHINCON2 ---
GI Consult Consult Note GI consult note Date of Consultation: 08/18/2025 Chief Complaint: Possible duodenal ulcer by CT Referring Physician: Dr. Pete Hair H&P: 70-year-old male admitted with complains of nausea and vomiting. Patient says he is not able to keep food down. Denies hematemesis. Also has noticed difficulty swallowing with solid food for the last few days. No regurgitation of the food. Patient denies abdominal pain. Patient is having loose stool for the last two days but denies melena or red blood in stool. Patient is status post EGD [address] Parra and diagnosed with H. pylori where he successfully completed antibiotic treatment. 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 To one side at the C3 level. Patient admits to taking Motrin for pills 3 times a day for the past many months and quit two weeks ago because of his abdominal symptoms Patient has been seen by gastro group and scheduled for an outpatient EGD colonoscopy in September Past Medical History: DM, HTN, Left foot diabetic ulcer Past Surgical History: Cervical neck surgery, Knee surgery Social History: NO smoking, drinking ETOH and use of illegal drugs. Family History: Noncontributory Review of Systems: Constitutional: no fever, chill, weight loss HEENT: no eye pain, no hearing loss, no oral lesion, no scleral icterus Heart: no chest pain, no chest pressure Lung: no cough, no dyspnea with exertion Abdomen: see HPI Physical exam: General: NAD, AAOX3 Chest: lung garcia clear to auscultation Heart: RRR, no murmur Abdomen: no tenderness to palpation, +BS Labs: Labs Test 08/17/25 21:16 08/17/25 12:54 08/17/25 08:00 08/17/25 02:34 Range/Units POC Glucose 174 H 70-106 mg/dl Influenza Type A Antigen Negative Negative Influenza Type B Antigen Negative Negative SARS-CoV-2 Antigen (Rapid) Negative NEGATIVE Urine Color Yellow Yellow Urine Clarity Clear Clear Urine pH 6.0 5.0-9.0 Urine Specific Tiona 1.031 1.001-1.035 Urine Protein Trace H Negative Urine Ketones 2+ H Negative Urine Blood Negative Negative /uL Urine Nitrite Negative Negative Urine Bilirubin Negative Negative Urine Urobilinogen 2 H Negative mg/dL Urine Leukocyte Esterase Negative Negative /uL Urine RBC 1 0 - 3 /hpf Urine Microscopic WBC 1 0-3 /HPF Urine Squamous Epithelial Cells Few <5 /hpf Urine Bacteria None seen None Seen /hpf Urine Glucose 4+ H Normal mg/dL White Blood Count 12.7 H 4.4-10.8 10^3/uL Red Blood Count 6.14 H 4.5-5.90 10^6/uL Hemoglobin 14.6 13.5-17.5 g/dL Hematocrit 45.8 41.0-53.0 % Mean Corpuscular Volume 74.5 L 80.0-100.0 fL Mean Corpuscular Hemoglobin 23.8 L 28.0-32.0 pg Mean Corpuscular Hemoglobin Concent 31.9 L 32.0-36.0 g/dL Red Cell Distribution Width 24.6 H 11.8-14.3 % Platelet Count 202 140-450 10^3/uL Mean Platelet Volume 8.2 6.9-10.8 fL Neutrophils (%) (Auto) 82.7 H 37.0-80.0 % Lymphocytes (%) (Auto) 9.0 L 10.0-50.0 % Monocytes (%) (Auto) 7.8 0.0-12.0 % Eosinophils (%) (Auto) 0.1 0.0-7.0 % Basophils (%) (Auto) 0.4 0.0-2.0 % Neutrophils # (Auto) 10.5 H 1.6-8.6 10 ^3/uL Lymphocytes # (Auto) 1.1 0.4-5.4 10 ^3/uL Monocytes # (Auto) 1.0 0-1.3 10 ^3/uL Eosinophils # (Auto) 0 0-0.8 10 ^3/uL Basophils # (Auto) 0.1 0-0.2 10 ^3/uL Nucleated Red Blood Cells 0.1 % Sodium Level 138 136-145 mmol/L Potassium Level 3.2 L 3.5-5.1 mmol/L Chloride Level 93 L 98-107 mmol/L Carbon Dioxide Level 34 H 20-31 mmol/L Anion Gap 11 5-15 Blood Urea Nitrogen 28 H 9-23 mg/dL Creatinine 1.00 0.700-1.30 mg/dL Glomerular Filtration Rate Calc 81 >90 mL/min BUN/Creatinine Ratio 28.0 H 10.0-20.0 Serum Glucose 215 H 74-106 mg/dL Calcium Level 9.9 8.7-10.4 mg/dL Total Bilirubin 0.9 0.2-1.0 mg/dL Aspartate Amino Transferase (AST) 17 13-40 U/L Alanine Aminotransferase (ALT) 22 7-40 U/L Alkaline Phosphatase 116 46-116 U/L Total Protein 6.6 5.7-8.2 g/dL Albumin 3.9 3.2-4.8 g/dL Lipase 26 12-53 U/L Test 08/16/25 20:53 08/16/25 19:03 Range/Units Lactic Acid Level 1.4 0.4-2.0 mmol/L Troponin I High Sensitivity 18 </=54 ng/L Microbiology Date/Time Source Procedure Growth Status 08/16/25 22:27 Foot Left Gram Stain - Final Resulted 08/16/25 22:27 Foot Left Wound Culture - Preliminary Resulted 08/16/25 21:00 Blood Blood Culture - Preliminary NO GROWTH AFTER 24 HOURS OF INCUBATION. Resulted Imaging: CT abdomen pelvis IMPRESSION: 1. Significant inflammatory stranding and thickening at the level of the duodenum with inconspicuous air-fluid level. 2. Superimposed duodenal ulcer not excluded. 3. Inflammatory stranding along the margin of the pancreatic head. 4. Correlate with clinical exam for pancreatitis. Assessment: Persistent nausea vomiting Dysphagia Diarrhea History of H. pylori gastritis in past Status post neck surgery Plan: Discussed with Dr. Parra - Pt will be scheduled for an EGD with biopsy with possible dilation tomorrow 08/19/2025 with MAC sedation. Pt was informed of the risks (bleeding, infection, perforation, reaction to sedation medications and cardiopulmonary arrest) and benefit and is agreeable to undergo the procedures. Protonix and Zofran DC NSAIDs discussed extensively Plan discussed with patient and RN Thank you for this consult Date of Service: Aug 18, 2025 Billing Provider: GAYLE HAIR Common Visit Codes: CONSULT ONLY Consultation Codes: [id number] CONSULT <60MIN GAYLE HAIR Aug 18, 2025 14:28
[2025-08-18 15:41] LABS: INR 1.26 (0.9-1.15); Prothrombin Time 13.1 sec (9.3-11.8)
[2025-08-18] MEDS: ONDANSETRON HCL 4 MG/2 ML VIAL IV PRN (16:17)
[2025-08-18] MEDS: MELATONIN 5 MG TAB PO ONE (22:00)
[2025-08-18] MEDS: PANTOPRAZOLE 40 MG/10 ML VIAL INJ IV SCH (22:14)
[2025-08-19] VITALS (9 sets, daily range): BP systolic 149–176; BP diastolic 89–100; PULSE 67–93; RESP 15–18; TEMP 97–98.7; O2SAT 94–98
--- NOTE | 2025-08-19 08:24 | DVHPN2 ---
Reviewed: Care Plan, H&P, Labs, Medications, Previous Orders, Radiology Changes from previous H/P or p: No Changes Eyes: No Pain, No Vision change, No Conjunctivae inflammation, No Eyelid inflammation, No Other, No Redness ENT: No Ear pain, No Ear discharge, No Nose pain, No Nose discharge, No Nose congestion, No Mouth pain, No Mouth swelling, No Throat pain, No Throat swelling, No Other Cardiovascular: No Chest Pain, No Palpitations, No Orthopnea, No Paroxysmal Noc. Dyspnea, No Edema, No Lt Headedness, No Other Respiratory: No Cough, No Dry, No Shortness of breath, No SOB with excertion, No Wheezing, No Hemoptysis, No Pleuritic Pain, No Sputum, No Other Gastrointestinal: Nausea, Vomiting Genitourinary: No Dysuria, No Frequency, No Incontinence, No Hematuria, No Retention, No Other Musculoskeletal: No other, No neck pain, No shoulder pain, No arm pain, No back pain, No hand pain, No leg pain, No foot pain Skin: Other Objective Vitals Vital Signs Date Time Temp Pulse Resp B/P (MAP) Pulse Ox O2 Delivery O2 Flow Rate FiO2 08/19/25 05:00 98.3 79 18 163/93 (116) 96 98.3 08/18/25 20:00 Room Air* 0 21 Intake/Output Intake and Output 08/19/25 07:00 Intake Total 1000 ml Balance 1000 ml Intake Oral 650 ml IV Total 350 ml # Voids 16 # Bowel Movements 6 Medications Current Medications Medications Dose Ordered Sig/Beverly Route Start Time Stop Time Status Last Admin Dose Admin Amlodipine Besylate 5 mg DAILY PO 08/17/25 10:00 08/18/25 08:46 5 MG Gabapentin 300 mg TID PO 08/17/25 06:00 08/17/25 06:38 300 MG Lisinopril 20 mg DAILY PO 08/17/25 10:00 08/18/25 08:46 20 MG Ceftriaxone Sodium 50 ml @ 100 mls/hr DAILY@09 IV 08/17/25 09:00 08/18/25 08:45 100 MLS/HR Diagnostic Test (Pha) 1 strip ACHS 08/17/25 07:00 08/19/25 06:40 1 STRIP Insulin Human Regular HS SC 08/17/25 22:00 08/18/25 22:21 4 UNITS Insulin Human Regular AC SC 08/17/25 07:00 08/19/25 06:41 3 UNITS Dextrose 50 ml UD PRN IV 08/16/25 22:45 Acetaminophen/ Hydrocodone Bitart 1 tab Q4HP PRN PO 08/16/25 22:45 Ondansetron HCl 4 mg Q4HP PRN IV 08/16/25 22:45 08/18/25 16:17 4 MG Docusate Sodium 100 mg BIDPRN PRN PO 08/16/25 22:45 Acetaminophen 650 mg Q6HP PRN PO 08/16/25 22:45 Nitroglycerin 0.4 mg Q5MINP PRN SL 08/17/25 00:00 Morphine Sulfate 2 mg Q30M PRN IV 08/17/25 00:00 Metronidazole 100 ml @ 100 mls/hr Q8HR IV 08/17/25 14:00 08/19/25 06:40 100 MLS/HR Lactated Ringer's 1,000 ml @ 125 mls/hr Q8H IV 08/17/25 12:45 08/18/25 01:20 125 MLS/HR Pantoprazole Sodium 40 mg BID IV 08/18/25 22:00 08/18/25 22:14 40 MG Laboratory Results Laboratory Tests 08/17/25 02:34 Coagulation Test 08/18/25 15:07 Prothrombin Time 13.1 sec (9.3-11.8) H Prothrombin Time INR 1.26 (0.9-1.15) H Urinalysis Test 08/17/25 08:00 Urine Color Yellow (Yellow) Urine Clarity Clear (Clear) Urine pH 6.0 (5.0-9.0) Urine Specific [place] 1.031 (1.001-1.035) Urine Protein Trace (Negative) H Urine Ketones 2+ (Negative) H Urine Blood Negative /uL (Negative) Urine Nitrite Negative (Negative) Urine Bilirubin Negative (Negative) Urine Urobilinogen 2 mg/dL (Negative) H Urine Leukocyte Esterase Negative /uL (Negative) Urine RBC 1 /hpf (0 - 3) Urine Microscopic WBC 1 /HPF (0-3) Urine Squamous Epithelial Cells Few /hpf (<5) Urine Bacteria None seen /hpf (None Seen) Urine Glucose 4+ mg/dL (Normal) H Microbiology Microbiology Date/Time Source Procedure Growth Status 08/16/25 22:27 Foot Left Gram Stain - Final Resulted 08/16/25 22:27 Foot Left Wound Culture - Preliminary Resulted 08/16/25 21:00 Blood Blood Culture - Preliminary NO GROWTH AFTER 48 HOURS OF INCUBATION. Resulted Labs and/or images reviewed: Labs reviewed by me, Image(s) reviewed by me Assessment/Plan Assessment/Plan Sepsis unknown etiology Acute abdominal pain nausea vomiting and diarrhea check lipase normal, CT abdomen pelvis without contrast shows possible duodenal ulcer, GI consult for Dr. Amarilis Parra; pantoprazole 40 mg IV b.i.d. Possible acute Gastroenteritis: Rocephin Flagyl IV Dysphagia History of H pylori gastritis Diabetes: Insulin sliding scale Acute Hypokalemia: Potassium 3.2: Replace potassium Acute dehydration: LR 150 per hour Hypertension Chronic left foot ulcer Flu test negative COVID test negative Time spent 50 minutes Advanced care planning time 20 minutes Patient is full code Patient is scheduled for EGD today by Dr. Amarilis Parra Plan discussed with: Patient My Orders Orders - JHON HAIR MD Procedure Category Date Status Time Pantoprazole PHA 08/18/25 In Process (Protonix) 22:00 * [facility] Front Desk Assistant CONS 08/18/25 Transmitted 13:02 * Dietary Consult CONS 08/18/25 Transmitted 14:29 Cleanse Wound With MORRIS 08/18/25 In Process Wound Clean 10:16 Date of Service: Aug 19, 2025 Billing Provider: JHON HAIR MD Common Visit Codes: [id number] INP/OBS CARE(HIGH) JHON HAIR MD Aug 19, 2025 08:24
[2025-08-19] MEDS ORDERED: LIDOCAINE VISCOUS 2% 15ML UD ONE (09:10)
[2025-08-19] MEDS ORDERED: SODIUM CHLORIDE LOCK 0 ML ONE (09:10)
[2025-08-19] MEDS ORDERED: diphenhydrAMINE HCL 50 MG/1 ML VL ONE (09:11)
[2025-08-19] MEDS ORDERED: MIDAZOLAM HCL 5 MG/ML-1ML VIAL ONE (09:11)
[2025-08-19] MEDS ORDERED: fentaNYL CITRATE 100 MCG/2 ML VL ONE (09:12)
--- NOTE | 2025-08-19 11:00 | DVHCONRES ---
Date Seen: Aug 19, 2025 Reason for Consultation Foot wound History of Present Illness The patient is a 70-year-old male with past medical history of hypertension and diabetes mellitus who presented to [place] [facility] ED with complaint of nausea and vomiting. Patient reports that he has been having episodes of i ntractable nausea and vomiting for the past 5 days associated with dry heaving and diarrhea. Patient was seen and evaluated in the ED, laboratory data shows WBC 15.9, platelets 253, sodium 137, potassium 3.3, BUN 33, creatinine 1.03, GFR 78, glucose 195, calcium 10.2, troponin 18, lactic acid 1.4, blood pressure 136/100, heart rate 98, temperature 97.7 F, O2 saturation 98% on room air. Chest x-ray showed no pleural effusion, consolidation, or pneumothorax; peripheral interstitial edema suspected. Patient was started on IV antibiotic regimen cefepime, please see medication orders section in the computer. On my assessment, patient denied chest pain, no headache, dizziness, diaphoresis, shortness of breaths, no abdominal pain, diarrhea, nausea, vomiting, fever, no chills. Patient was admitted for further evaluation and medical management. Past Medical History See H&P Past Surgical History See H&P Family History: Cancer G8 MOTHER, Onset: - 40 Allergies: Coded Allergies: NO KNOWN ALLERGIES (Unverified , 04/09/11) Home Meds Active Scripts Amlodipine Besylate (NORVASC TABLET) 5 Mg Tb, 5 MG PO DAILY, #30 TAB Prov:JOCELYN SEXTON M.D. 04/23/14 Amlodipine Besylate (Amlodipine Besylate) 5 Mg Tab, 1 TAB PO DAILY, #30 TAB 5 Refills Prov:JOCELYN SEXTON M.D. 04/23/14 Benazepril Hcl (Benazepril Hcl) 40 Mg Tab, 80 MG PO DAILY, #30 Prov:BECKI GIORDANO N.P. 04/22/14 Reported Medications Tamsulosin Hcl (Tamsulosin Hcl) 0.4 Mg Cap, 0.4 MG PO QPM for 30 Days, MG 04/22/14 Metformin Hydrochloride (Metformin Hcl) 1,000 Mg Tab, 1 TAB PO BID, #60 TAB 5 Refills 04/22/14 Zolpidem Tartrate (Zolpidem Tartrate) 10 Mg Tab, 10 MG PO QPM, #90 04/22/14 Gabapentin (Gabapentin) 300 Mg Cap, 300 MG PO TID, #270 04/22/14 Metoprolol Tartrate (Metoprolol Tartrate) 100 Mg Tab, 100 MG PO BID, #180 04/22/14 Insulin Glargine (Lantus) 100 Units/Ml Vial, 50 UNITS SC QAM, #40 04/22/14 Hydrocodone-Acetaminophen (Hydrocodone/Acetaminophen) 1 Tab Tab, 1 TAB PO PRN, #60 04/22/14 Current Medications Current Medications Medications (Trade) Dose Ordered Sig/Beverly Route PRN Reason Start Time Stop Time Status Last Admin Pantoprazole Sodium (Protonix) 40 mg BID IV 08/18/25 22:00 08/19/25 10:08 Vital Signs Vital Signs Date Time Temp Pulse Resp B/P (MAP) Pulse Ox O2 Delivery O2 Flow Rate FiO2 08/19/25 10:08 152/90 08/19/25 09:00 97.0 93 16 98 97.0 08/18/25 20:00 Room Air* 0 21 Physical Exam Dermatological: Skin is dry with mild erythema and some maceration around the wound site No gross deformities noted Mild non-pitting edema present bilaterally Left foot plantar 1st metatarsal granular base surrounding hyperkeratosis Vascular: Dorsalis pedis and posterior tibial pulses are 1+ bilaterally Capillary refill is under 2 seconds Skin temperature is warm bilaterally Neurologic: Protective sensation is absent on the plantar forefoot bilaterally Monofilament testing reveals decreased sensation in multiple plantar sites Musculoskeletal: Range of motion at the ankle and MTP joints is within normal limits. Strength is 5/5 in all tested muscle groups. Gait is antalgic due to offloading of the affected limb. Labs/Diagnostic Data Labs Test 08/19/25 06:21 08/18/25 15:07 08/17/25 12:54 08/17/25 08:00 Range/Units POC Glucose 180 H 70-106 mg/dl Prothrombin Time 13.1 H 9.3-11.8 sec Prothrombin Time INR 1.26 H 0.9-1.15 Influenza Type A Antigen Negative Negative Influenza Type B Antigen Negative Negative SARS-CoV-2 Antigen (Rapid) Negative NEGATIVE Urine Color Yellow Yellow Urine Clarity Clear Clear Urine pH 6.0 5.0-9.0 Urine Specific [place] 1.031 1.001-1.035 Urine Protein Trace H Negative Urine Ketones 2+ H Negative Urine Blood Negative Negative /uL Urine Nitrite Negative Negative Urine Bilirubin Negative Negative Urine Urobilinogen 2 H Negative mg/dL Urine Leukocyte Esterase Negative Negative /uL Urine RBC 1 0 - 3 /hpf Urine Microscopic WBC 1 0-3 /HPF Urine Squamous Epithelial Cells Few <5 /hpf Urine Bacteria None seen None Seen /hpf Urine Glucose 4+ H Normal mg/dL Test 08/17/25 02:34 08/16/25 20:53 08/16/25 19:03 Range/Units White Blood Count 12.7 H 4.4-10.8 10^3/uL Red Blood Count 6.14 H 4.5-5.90 10^6/uL Hemoglobin 14.6 13.5-17.5 g/dL Hematocrit 45.8 41.0-53.0 % Mean Corpuscular Volume 74.5 L 80.0-100.0 fL Mean Corpuscular Hemoglobin 23.8 L 28.0-32.0 pg Mean Corpuscular Hemoglobin Concent 31.9 L 32.0-36.0 g/dL Red Cell Distribution Width 24.6 H 11.8-14.3 % Platelet Count 202 140-450 10^3/uL Mean Platelet Volume 8.2 6.9-10.8 fL Neutrophils (%) (Auto) 82.7 H 37.0-80.0 % Lymphocytes (%) (Auto) 9.0 L 10.0-50.0 % Monocytes (%) (Auto) 7.8 0.0-12.0 % Eosinophils (%) (Auto) 0.1 0.0-7.0 % Basophils (%) (Auto) 0.4 0.0-2.0 % Neutrophils # (Auto) 10.5 H 1.6-8.6 10 ^3/uL Lymphocytes # (Auto) 1.1 0.4-5.4 10 ^3/uL Monocytes # (Auto) 1.0 0-1.3 10 ^3/uL Eosinophils # (Auto) 0 0-0.8 10 ^3/uL Basophils # (Auto) 0.1 0-0.2 10 ^3/uL Nucleated Red Blood Cells 0.1 % Sodium Level 138 136-145 mmol/L Potassium Level 3.2 L 3.5-5.1 mmol/L Chloride Level 93 L 98-107 mmol/L Carbon Dioxide Level 34 H 20-31 mmol/L Anion Gap 11 5-15 Blood Urea Nitrogen 28 H 9-23 mg/dL Creatinine 1.00 0.700-1.30 mg/dL Glomerular Filtration Rate Calc 81 >90 mL/min BUN/Creatinine Ratio 28.0 H 10.0-20.0 Serum Glucose 215 H 74-106 mg/dL Calcium Level 9.9 8.7-10.4 mg/dL Total Bilirubin 0.9 0.2-1.0 mg/dL Aspartate Amino Transferase (AST) 17 13-40 U/L Alanine Aminotransferase (ALT) 22 7-40 U/L Alkaline Phosphatase 116 46-116 U/L Total Protein 6.6 5.7-8.2 g/dL Albumin 3.9 3.2-4.8 g/dL Lipase 26 12-53 U/L Lactic Acid Level 1.4 0.4-2.0 mmol/L Troponin I High Sensitivity 18 </=54 ng/L Microbiology Date/Time Source Procedure Growth Status 08/16/25 22:27 Foot Left Gram Stain - Final Resulted 08/16/25 22:27 Wound Culture - Preliminary Proteus mirabilis Escherichia coli Resulted 08/16/25 21:00 Blood Blood Culture - Preliminary NO GROWTH AFTER 48 HOURS OF INCUBATION. Resulted Problems(with codes): (1) Altered mental status (2) Medication side effect (3) Dehydration (4) Diabetes (5) Hyperglycemia (6) Sepsis (7) Nausea vomiting and diarrhea (8) Hypokalemia (9) Generalized weakness (10) Leukocytosis, unspecified (11) Diabetes mellitus with hyperglycemia (12) DIAB ISAAK WO COMPL, TYPE II OR UNSPEC TYPE, NOT UNCNTRLD (13) ANEMIA NOS (14) OBESITY, NOS Plan/Recommendation ASSESSMENT: Patient is a 70 year old seen on the floor for a worsening ulcer PLAN: - The patients chart was reviewed, clinical findings were discussed with the patient, the etiologies of the conditions were discussed in detail, and a treatment plan was agreed to at this time, with both oral and written instruc tions provided. - no advanced imaging required - wound does not look deep enough for concern with osteomyelitis - continue Betadine dressing - we will get a total contact cast with his wound care doctor - follow up with the Wound Care team - surgical intervention required at this point All questions were answered and concerns addressed to the patient's satisfaction. The patient was given the phone number to the clinic and was told how to make contact with the clinic should any concerns or questions arise. Patient understands that if any questions or concerns arise prior to the next appointment, we should be contacted immediately. FOLLOW-UP: Continue to follow while inpatient Plan discussed with: Patient Visit Coding Podiatry Date of Service if different f: Aug 19, 2025 Billing Provider: ALEXANDREA JIMÉNEZ DPM Podiatry Common Visit Codes: CONSULT ONLY Podiatry Consult Codes: [id number] NEW/EST HI 80 ALEXANDREA JIMÉNEZ DPM Aug 19, 2025 11:00
--- NOTE | 2025-08-19 13:31 | DVHPN2 ---
Subjective Patient admits to feeling slightly better Has been NPO since midnight for procedure Reviewed: Care Plan, H&P, Labs, Medications, Previous Orders, Radiology Changes from previous H/P or p: No Changes, Changes Gastrointestinal: Nausea, Vomiting Skin: Other Objective Vitals Vital Signs Date Time Temp Pulse Resp B/P (MAP) Pulse Ox O2 Delivery O2 Flow Rate FiO2 08/19/25 11:22 98.7 88 18 152/99 (116) 96 98.7 08/18/25 20:00 Room Air* 0 21 Intake/Output Intake and Output 08/19/25 07:00 Intake Total 1000 ml Balance 1000 ml Intake Oral 650 ml IV Total 350 ml # Voids 16 # Bowel Movements 6 Exam General: NAD, AAOX3 Chest: lung garcia clear to auscultation Heart: RRR, no murmur Abdomen: no tenderness to palpation, +BS Medications Current Medications Medications Dose Ordered Sig/Beverly Route Start Time Stop Time Status Last Admin Dose Admin Amlodipine Besylate 5 mg DAILY PO 08/17/25 10:00 08/19/25 10:08 5 MG Gabapentin 300 mg TID PO 08/17/25 06:00 08/17/25 06:38 300 MG Lisinopril 20 mg DAILY PO 08/17/25 10:00 08/19/25 10:08 20 MG Ceftriaxone Sodium 50 ml @ 100 mls/hr DAILY@09 IV 08/17/25 09:00 08/19/25 10:07 100 MLS/HR Diagnostic Test (Pha) 1 strip ACHS 08/17/25 07:00 08/19/25 12:00 1 STRIP Insulin Human Regular HS SC 08/17/25 22:00 08/18/25 22:21 4 UNITS Insulin Human Regular AC SC 08/17/25 07:00 08/19/25 12:15 3 UNITS Dextrose 50 ml UD PRN IV 08/16/25 22:45 Acetaminophen/ Hydrocodone Bitart 1 tab Q4HP PRN PO 08/16/25 22:45 Ondansetron HCl 4 mg Q4HP PRN IV 08/16/25 22:45 08/18/25 16:17 4 MG Docusate Sodium 100 mg BIDPRN PRN PO 08/16/25 22:45 Acetaminophen 650 mg Q6HP PRN PO 08/16/25 22:45 Nitroglycerin 0.4 mg Q5MINP PRN SL 08/17/25 00:00 Morphine Sulfate 2 mg Q30M PRN IV 08/17/25 00:00 Metronidazole 100 ml @ 100 mls/hr Q8HR IV 08/17/25 14:00 08/19/25 06:40 100 MLS/HR Lactated Ringer's 1,000 ml @ 125 mls/hr Q8H IV 08/17/25 12:45 08/18/25 01:20 125 MLS/HR Pantoprazole Sodium 40 mg BID IV 08/18/25 22:00 08/19/25 10:08 40 MG Laboratory Results Laboratory Tests 08/17/25 02:34 Coagulation Test 08/18/25 15:07 Prothrombin Time 13.1 sec (9.3-11.8) H Prothrombin Time INR 1.26 (0.9-1.15) H Urinalysis Test 08/17/25 08:00 Urine Color Yellow (Yellow) Urine Clarity Clear (Clear) Urine pH 6.0 (5.0-9.0) Urine Specific [place] 1.031 (1.001-1.035) Urine Protein Trace (Negative) H Urine Ketones 2+ (Negative) H Urine Blood Negative /uL (Negative) Urine Nitrite Negative (Negative) Urine Bilirubin Negative (Negative) Urine Urobilinogen 2 mg/dL (Negative) H Urine Leukocyte Esterase Negative /uL (Negative) Urine RBC 1 /hpf (0 - 3) Urine Microscopic WBC 1 /HPF (0-3) Urine Squamous Epithelial Cells Few /hpf (<5) Urine Bacteria None seen /hpf (None Seen) Urine Glucose 4+ mg/dL (Normal) H Microbiology Microbiology Date/Time Source Procedure Growth Status 08/16/25 22:27 Foot Left Gram Stain - Final Resulted 08/16/25 22:27 Wound Culture - Preliminary Proteus mirabilis Escherichia coli Resulted 08/16/25 21:00 Blood Blood Culture - Preliminary NO GROWTH AFTER 48 HOURS OF INCUBATION. Resulted Labs and/or images reviewed: Labs reviewed by me, Image(s) reviewed by me Assessment/Plan Assessment/Plan Persistent nausea vomiting Dysphagia Diarrhea History of H. pylori gastritis in past Status post neck surgery Plan: Discussed with Dr. Parra EGD will be rescheduled for tomorrow due to non availability of MAC sedation with anesthesiologist - Pt will be scheduled for an EGD with biopsy with possible dilation tomorrow 08/20/2025 with MAC sedation. Pt was informed of the risks (bleeding, infection, perforation, reaction to sedation medications and cardiopulmonary arrest) and benefit and is agreeable to undergo the procedures. Clear liquid diet today NPO after midnight Plan discussed with: Patient, Other (RN) My Orders Orders - GAYLE HAIR Procedure Category Date Status Time Npo After Midnight MORRIS 08/18/25 In Process 14:22 Clear Liq Diet DIET 08/19/25 Transmitted Lunch Obtain Consent For: ORDERS 08/19/25 Transmitted 13:12 Npo (Nothing By DIET 08/19/25 Transmitted Mouth) Diet Dinner Obtain Consent For MORRIS 08/19/25 In Process Anesthesia 13:12 Date of Service: Aug 19, 2025 Billing Provider: GAYLE HAIR Common Visit Codes: [id number] INP/OBS CARE(HIGH) GAYLE HAIR Aug 19, 2025 13:31
[2025-08-20] VITALS (10 sets, daily range): BP systolic 128–174; BP diastolic 75–108; PULSE 67–89; RESP 12–20; TEMP 97.5–98.5; O2SAT 93–98
[2025-08-20] MEDS: hydrALAZINE HCL 20 MG/ML VL IV ONE (05:49)
[2025-08-20] MEDS ORDERED: PROPOFOL 10 MG/ML 20 ML IV ONE (12:50)
[2025-08-20] MEDS ORDERED: fentaNYL CITRATE 100 MCG/2 ML VL ONE (12:50)
--- NOTE | 2025-08-20 13:35 | DVHPN2 ---
Reviewed: Care Plan, H&P, Labs, Medications, Previous Orders, Radiology Changes from previous H/P or p: No Changes Gastrointestinal: Nausea, Vomiting Skin: Other Objective Vitals Vital Signs Date Time Temp Pulse Resp B/P (MAP) Pulse Ox O2 Delivery O2 Flow Rate FiO2 08/20/25 13:00 98.5 78 20 135/86 (102) 97 98.5 08/19/25 20:00 Room Air* 0 21 Intake/Output Intake and Output 08/20/25 07:00 Intake Total 300 ml Balance 300 ml Intake Oral 200 ml IV Total 100 ml # Voids 7 # Bowel Movements 3 Medications Current Medications Medications Dose Ordered Sig/Beverly Route Start Time Stop Time Status Last Admin Dose Admin Amlodipine Besylate 5 mg DAILY PO 08/17/25 10:00 08/20/25 12:11 5 MG Gabapentin 300 mg TID PO 08/17/25 06:00 08/17/25 06:38 300 MG Lisinopril 20 mg DAILY PO 08/17/25 10:00 08/20/25 12:11 20 MG Ceftriaxone Sodium 50 ml @ 100 mls/hr DAILY@09 IV 08/17/25 09:00 08/20/25 09:10 100 MLS/HR Diagnostic Test (Pha) 1 strip ACHS 08/17/25 07:00 08/20/25 11:30 1 STRIP Insulin Human Regular HS SC 08/17/25 22:00 08/19/25 21:51 4 UNITS Insulin Human Regular AC SC 08/17/25 07:00 08/19/25 17:55 6 UNITS Dextrose 50 ml UD PRN IV 08/16/25 22:45 Acetaminophen/ Hydrocodone Bitart 1 tab Q4HP PRN PO 08/16/25 22:45 Ondansetron HCl 4 mg Q4HP PRN IV 08/16/25 22:45 08/18/25 16:17 4 MG Docusate Sodium 100 mg BIDPRN PRN PO 08/16/25 22:45 Acetaminophen 650 mg Q6HP PRN PO 08/16/25 22:45 Nitroglycerin 0.4 mg Q5MINP PRN SL 08/17/25 00:00 Morphine Sulfate 2 mg Q30M PRN IV 08/17/25 00:00 Metronidazole 100 ml @ 100 mls/hr Q8HR IV 08/17/25 14:00 08/20/25 06:28 100 MLS/HR Lactated Ringer's 1,000 ml @ 125 mls/hr Q8H IV 08/17/25 12:45 08/20/25 04:58 125 MLS/HR Pantoprazole Sodium 40 mg BID IV 08/18/25 22:00 08/20/25 09:10 40 MG Clonidine HCl 0.2 mg Q6HP PRN PO 08/19/25 16:30 08/19/25 17:48 0.2 MG Laboratory Results Laboratory Tests 08/17/25 02:34 Urinalysis Test 08/17/25 08:00 Urine Color Yellow (Yellow) Urine Clarity Clear (Clear) Urine pH 6.0 (5.0-9.0) Urine Specific [place] 1.031 (1.001-1.035) Urine Protein Trace (Negative) H Urine Ketones 2+ (Negative) H Urine Blood Negative /uL (Negative) Urine Nitrite Negative (Negative) Urine Bilirubin Negative (Negative) Urine Urobilinogen 2 mg/dL (Negative) H Urine Leukocyte Esterase Negative /uL (Negative) Urine RBC 1 /hpf (0 - 3) Urine Microscopic WBC 1 /HPF (0-3) Urine Squamous Epithelial Cells Few /hpf (<5) Urine Bacteria None seen /hpf (None Seen) Urine Glucose 4+ mg/dL (Normal) H Microbiology Microbiology Date/Time Source Procedure Growth Status 08/16/25 22:27 Foot Left Gram Stain - Final Resulted 08/16/25 22:27 Wound Culture - Preliminary Proteus mirabilis Escherichia coli Resulted 08/16/25 21:00 Blood Blood Culture - Preliminary NO GROWTH AFTER 72 HOURS OF INCUBATION. Resulted Assessment/Plan Assessment/Plan Sepsis unknown etiology Acute abdominal pain nausea vomiting and diarrhea check lipase normal, CT abdomen pelvis without contrast shows possible duodenal ulcer, GI consult for Dr. Amarilis Parra; pantoprazole 40 mg IV b.i.d. Possible acute Gastroenteritis: Rocephin Flagyl IV Dysphagia History of H pylori gastritis Diabetes: Insulin sliding scale Acute Hypokalemia: Potassium 3.2: Replace potassium Acute dehydration: LR 150 per hour Hypertension Chronic left foot ulcer Flu test negative COVID test negative Time spent 50 minutes Advanced care planning time 20 minutes Patient is full code Patient is scheduled for EGD today by Dr. Amarilis Parra Plan discussed with: Patient My Orders Orders - JHON HAIR MD Procedure Category Date Status Time Clonidine Hcl Tablet PHA 08/19/25 In Process (Catapres Tablet) 16:30 Date of Service: Aug 20, 2025 Billing Provider: JHON HAIR MD Common Visit Codes: [id number] INP/OBS CARE(HIGH) JHON HAIR MD Aug 20, 2025 13:35
--- NOTE | 2025-08-20 14:29 | DVHOP2 ---
Operative Report DATE OF OPERATION: 08/20/25 PROCEDURE: Upper Endoscopy with biopsy. PREOPERATIVE INDICATION: The patient is a 70 -year-old male undergoing endoscopy for nausea vomiting GERD dyspepsia POSTOPERATIVE DIAGNOSES: 1. 3 cm sliding-type hiatal hernia with the acute grade C linear erosive esophagitis with linear esophageal ulcers extending into the distal 10 cm of the esophagus from which biopsies were obtained 2. Moderate duodenitis with multiple superficial duodenal ulcers in the duodenal bulb and postbulbar area ; mild gastritis PROCEDURE PERFORMED BY: Jan Parra GI NURSE: Lashon SCOPE: Olympus videoendoscope. ASA CLASS: 3 PREOPERATIVE MEDICATIONS: Mac sedation, Dr. Jones PROCEDURE IN DETAIL: After obtaining an informed consent, the patient was placed on left lateral decubitus position. The patient was then sedated with the above medications. A bite block was placed between his teeth. The endoscope was then passed through the oropharynx, into the esophagus, and through the stomach and pylorus up to the second and third part of the duodenum. The endoscope was then withdrawn. The 2nd and 3rd part of the duodenum and the duodenal bulb showed moderate duodenitis with multiple superficial duodenal erosions and ulcers The pre-pyloric area antrum and body showed mild gastritis. On retroflexion the fundus and cardia were normal. Duodenal and gastric biopsies were obtained The endoscope was then withdrawn into distal esophagus where the patient had a 3 cm sliding-type hiatal hernia with no evidence of obstruction The patient had acute erosive esophagitis with inflammatory changes of the GE junction and linear ulcers extending into the distal 10 cm of the esophagus from which biopsies were obtained The remaining distal and proximal esophagus and oropharynx were unremarkable The patient tolerated the procedure well without difficulty. COMPLICATIONS : None SPECIMENS: Duodenal biopsies Gastric biopsies Esophageal biopsies DISPOSITION: Transfer back to the floor Stable PLAN: 1. Await for biopsy result 2. Will place pt on Protonix 40 mg bid p.o. 3. Carafate suspension 1 g p.o. 4 times a day 4. Start full liquid diet advance as tolerated 5. Outpatient follow up with me in 4-6 weeks to review results and discuss further management JAN PARRA MD Aug 20, 2025 14:29
[2025-08-20] MEDS: SUCRALFATE 1 GM/10 ML ORAL SUSP PO SCH (17:07)
[2025-08-21] VITALS (8 sets, daily range): BP systolic 126–168; BP diastolic 77–90; PULSE 65–74; RESP 16–20; TEMP 97.1–98.5; O2SAT 95–98
--- NOTE | 2025-08-21 12:26 | DVHPN2 ---
Progress Note Date Seen: Aug 21, 2025 Resident Creating Document: LOBO YANEZ RESIDENT Medical Necessity Reason Pt with a Central, PICC or Fol: No Subjective Patient reports: No new complaints, Feels better Objective vital signs Vital Sign Date Time Temp Pulse Resp B/P (MAP) Pulse Ox O2 Delivery O2 Flow Rate FiO2 08/21/25 09:00 98.4 73 20 130/85 (100) 95 98.4 08/20/25 20:00 Room Air* 0 21 Total Intake and Output 08/20/25 08/20/25 08/21/25 15:00 23:00 07:00 Intake Total 160 ml 200 ml 100 ml Balance 160 ml 200 ml 100 ml medications Current Medications Medications Dose Ordered Sig/Beverly Route Start Time Stop Time Status Last Admin Dose Admin Amlodipine Besylate 5 mg DAILY PO 08/17/25 10:00 08/21/25 08:29 5 MG Gabapentin 300 mg TID PO 08/17/25 06:00 08/21/25 06:04 300 MG Lisinopril 20 mg DAILY PO 08/17/25 10:00 08/21/25 08:29 20 MG Ceftriaxone Sodium 50 ml @ 100 mls/hr DAILY@09 IV 08/17/25 09:00 08/21/25 08:28 100 MLS/HR Diagnostic Test (Pha) 1 strip ACHS 08/17/25 07:00 08/21/25 11:00 1 STRIP Insulin Human Regular HS SC 08/17/25 22:00 08/20/25 21:47 6 UNITS Insulin Human Regular AC SC 08/17/25 07:00 08/21/25 11:10 9 UNITS Dextrose 50 ml UD PRN IV 08/16/25 22:45 Acetaminophen/ Hydrocodone Bitart 1 tab Q4HP PRN PO 08/16/25 22:45 Ondansetron HCl 4 mg Q4HP PRN IV 08/16/25 22:45 08/18/25 16:17 4 MG Docusate Sodium 100 mg BIDPRN PRN PO 08/16/25 22:45 Acetaminophen 650 mg Q6HP PRN PO 08/16/25 22:45 Nitroglycerin 0.4 mg Q5MINP PRN SL 08/17/25 00:00 Morphine Sulfate 2 mg Q30M PRN IV 08/17/25 00:00 Metronidazole 100 ml @ 100 mls/hr Q8HR IV 08/17/25 14:00 08/21/25 06:04 100 MLS/HR Lactated Ringer's 1,000 ml @ 125 mls/hr Q8H IV 08/17/25 12:45 08/20/25 04:58 125 MLS/HR Pantoprazole Sodium 40 mg BID IV 08/18/25 22:00 08/21/25 08:28 40 MG Clonidine HCl 0.2 mg Q6HP PRN PO 08/19/25 16:30 08/20/25 18:32 0.2 MG Sucralfate 1 gm QID@0600,1130,1700,2200 PO 08/20/25 17:00 08/21/25 11:09 1 GM Examination Morbidly obese male patient lying in the bed comfortably, no distress General: Obese, afebrile, palor, mucosae are moist Cardiovascular: Regular S1 and S2. No murmurs, gallops or rubs. No JVD elevation. No pedal edema Respiratory: Normal B/L air entry on room air. Clear lung sounds on auscultation Abdomen: Soft, nontender, nondistended, normoactive bowel sounds, no rebound tenderness, no organomegaly, no masses Genitourinary: Deferred laboratory and microbiology Laboratory Tests 08/17/25 02:34 Test 08/17/25 02:34 Range/Units Serum Glucose 215 H 74-106 mg/dL Microbiology Date/Time Source Procedure Growth Status 08/16/25 22:27 Foot Left Gram Stain - Final Complete 08/16/25 22:27 Wound Culture - Final Proteus mirabilis Escherichia coli Enterococcus faecalis Complete 08/16/25 21:00 Blood Blood Culture - Preliminary NO GROWTH AFTER 72 HOURS OF INCUBATION. Resulted Labs and/or images reviewed: Labs reviewed by me, Image(s) reviewed by me Problem List/Assessment/Plan Problem List/Assessment/Plan Dysphagia secondary to grade C linear erosive esophagitis Esophageal ulcers Duodenitis Hiatal hernia 3 cm sliding-type History of H pylori Sepsis due to left foot wound Wound culture growing Proteus, E coli, faecalis POSTOPERATIVE DIAGNOSES: 1. 3 cm sliding-type hiatal hernia with the acute grade C linear erosive esophagitis with linear esophageal ulcers extending into the distal 10 cm of the esophagus from which biopsies were obtained 2. Moderate duodenitis with multiple superficial duodenal ulcers in the duodenal bulb and postbulbar area ; mild gastritis Plan: Recommendation: Dr. Parra: Follow up with GI as outpatient for biopsy results, continue Protonix 40 mg p.o. b.i.d.. Carafate suspension 1 g p.o. 4 times a day. Stable to be discharged. Outpatient follow up within 4-6 weeks. Full liquid diet, advanced advanced to soft Patient reports feeling better Thank you for consulting GI Case discussed with Dr. Parra Plan discussed with: Patient, Other (Nurse) My Orders My Orders Orders - LOBO YANEZ Procedure Category Date Status Time Soft Diet DIET 08/21/25 Transmitted Lunch Sepsis reassessment post fluid Is the fluid challenge complet: Yes Date of Reassessment: Aug 17, 2025 Time of Reassessment: 7 Blood Culture Time: 2052 Time Antibiotics Given: 2207 Systolic BP: 150 Diastolic BP: 87 Blood Pressure Mean: 108 Respiration: 17 Respiratory Effort: Non-Labored Respiratory Pattern: Regular Oxygen Saturation: 95 Pulse Rate: 92 Pulse Location: Radial Pulse Strength: Normal Pulse Assessment Method: Palpation Pulse Rhythm: Regular Capillary Refill: < 3 seconds Heart Sounds: S1 & S2 Breath sounds: Clear Skin Moisture: Dry Skin Tugor: WNL Skin Color: WNL LOBO YANEZ Aug 21, 2025 12:26
--- NOTE | 2025-08-21 13:04 | DVHPN2 ---
Reviewed: Care Plan, H&P, Labs, Medications, Previous Orders, Radiology Changes from previous H/P or p: No Changes Gastrointestinal: Nausea, Vomiting Skin: Other Objective Vitals Vital Signs Date Time Temp Pulse Resp B/P (MAP) Pulse Ox O2 Delivery O2 Flow Rate FiO2 08/21/25 09:00 98.4 73 20 130/85 (100) 95 98.4 08/20/25 20:00 Room Air* 0 21 Intake/Output Intake and Output 08/21/25 07:00 Intake Total 460 ml Balance 460 ml Intake Oral 200 ml IV Total 260 ml # Voids 12 # Bowel Movements 10 Medications Current Medications Medications Dose Ordered Sig/Beverly Route Start Time Stop Time Status Last Admin Dose Admin Amlodipine Besylate 5 mg DAILY PO 08/17/25 10:00 08/21/25 08:29 5 MG Gabapentin 300 mg TID PO 08/17/25 06:00 08/21/25 06:04 300 MG Lisinopril 20 mg DAILY PO 08/17/25 10:00 08/21/25 08:29 20 MG Ceftriaxone Sodium 50 ml @ 100 mls/hr DAILY@09 IV 08/17/25 09:00 08/21/25 08:28 100 MLS/HR Diagnostic Test (Pha) 1 strip ACHS 08/17/25 07:00 08/21/25 11:00 1 STRIP Insulin Human Regular HS SC 08/17/25 22:00 08/20/25 21:47 6 UNITS Insulin Human Regular AC SC 08/17/25 07:00 08/21/25 11:10 9 UNITS Dextrose 50 ml UD PRN IV 08/16/25 22:45 Acetaminophen/ Hydrocodone Bitart 1 tab Q4HP PRN PO 08/16/25 22:45 Ondansetron HCl 4 mg Q4HP PRN IV 08/16/25 22:45 08/18/25 16:17 4 MG Docusate Sodium 100 mg BIDPRN PRN PO 08/16/25 22:45 Acetaminophen 650 mg Q6HP PRN PO 08/16/25 22:45 Nitroglycerin 0.4 mg Q5MINP PRN SL 08/17/25 00:00 Morphine Sulfate 2 mg Q30M PRN IV 08/17/25 00:00 Metronidazole 100 ml @ 100 mls/hr Q8HR IV 08/17/25 14:00 08/21/25 06:04 100 MLS/HR Lactated Ringer's 1,000 ml @ 125 mls/hr Q8H IV 08/17/25 12:45 08/20/25 04:58 125 MLS/HR Pantoprazole Sodium 40 mg BID IV 08/18/25 22:00 08/21/25 08:28 40 MG Clonidine HCl 0.2 mg Q6HP PRN PO 08/19/25 16:30 08/20/25 18:32 0.2 MG Sucralfate 1 gm QID@0600,1130,1700,2200 PO 08/20/25 17:00 08/21/25 11:09 1 GM Laboratory Results Laboratory Tests 08/17/25 02:34 Urinalysis Test 08/17/25 08:00 Urine Color Yellow (Yellow) Urine Clarity Clear (Clear) Urine pH 6.0 (5.0-9.0) Urine Specific [place] 1.031 (1.001-1.035) Urine Protein Trace (Negative) H Urine Ketones 2+ (Negative) H Urine Blood Negative /uL (Negative) Urine Nitrite Negative (Negative) Urine Bilirubin Negative (Negative) Urine Urobilinogen 2 mg/dL (Negative) H Urine Leukocyte Esterase Negative /uL (Negative) Urine RBC 1 /hpf (0 - 3) Urine Microscopic WBC 1 /HPF (0-3) Urine Squamous Epithelial Cells Few /hpf (<5) Urine Bacteria None seen /hpf (None Seen) Urine Glucose 4+ mg/dL (Normal) H Microbiology Microbiology Date/Time Source Procedure Growth Status 08/16/25 22:27 Foot Left Gram Stain - Final Complete 08/16/25 22:27 Wound Culture - Final Proteus mirabilis Escherichia coli Enterococcus faecalis Complete 08/16/25 21:00 Blood Blood Culture - Preliminary NO GROWTH AFTER 72 HOURS OF INCUBATION. Resulted Labs and/or images reviewed: Labs reviewed by me, Image(s) reviewed by me Assessment/Plan Assessment/Plan Sepsis unknown etiology Acute abdominal pain nausea vomiting and diarrhea lipase normal, CT abdomen pelvis without contrast shows possible duodenal ulcer, GI consult for Dr. Amarilis Parra; pantoprazole 40 mg IV b.i.d. Carafate EGD by Dr. Amarilis Parra shows: 1. 3 cm sliding-type hiatal hernia with the acute grade C linear erosive esophagitis with linear esophageal ulcers extending into the distal 10 cm of the esophagus from which biopsies were obtained 2. Moderate duodenitis with multiple superficial duodenal ulcers in the duodenal bulb and postbulbar area ; mild gastritis Possible acute Gastroenteritis: Rocephin Flagyl IV Dysphagia History of H pylori gastritis Diabetes: Insulin sliding scale Acute Hypokalemia: Potassium 3.2: Replace potassium Acute dehydration: LR 150 per hour Hypertension Chronic left foot ulcer Flu test negative COVID test negative Time spent 50 minutes Advanced care planning time 20 minutes Patient is full code Plan discussed with: Patient Date of Service: Aug 21, 2025 Billing Provider: JHON HAIR MD Common Visit Codes: [id number] INP/OBS CARE(HIGH) JHON HAIR MD Aug 21, 2025 13:04
[2025-08-22 01:00] VITALS: BP 143/82; PULSE 69; RESP 17; TEMP 98.6; O2SAT 96
[2025-08-22 05:00] VITALS: BP 158/97; PULSE 72; RESP 18; TEMP 98.5; O2SAT 95
[2025-08-22 06:43] LABS: Hemoglobin 13.7 g/dL (13.5-17.5); Mean Corpuscular Hemoglobin 23.9 pg (28.0-32.0); Nucleated Red Blood Cells % 0.1 %
[2025-08-22 06:45] LABS: Hematocrit 44.0 % (41.0-53.0); Mean Corpuscular Volume 77.2 fL (80.0-100.0)
[2025-08-22 07:08] LABS: Alanine Aminotransferase 22 U/L (7-40); Albumin 3.5 g/dL (3.2-4.8); Alkaline Phosphatase 93 U/L (46-116); Anion Gap 9 (5-15); BUN/Creatinine Ratio 11.5 (10.0-20.0); Bilirubin, Total 0.4 mg/dL (0.2-1.0); Blood Urea Nitrogen 10 mg/dL (9-23); Calcium 9.4 mg/dL (8.7-10.4); Carbon Dioxide 27 mmol/L (20-31); Chloride 106 mmol/L (98-107); Potassium 3.6 mmol/L (3.5-5.1); Sodium 142 mmol/L (136-145); Total Protein 6.0 g/dL (5.7-8.2)
[2025-08-22 07:13] LABS: Glucose 205 mg/dL (74-106)
[2025-08-22 08:00] VITALS: PULSE 76; RESP 18; O2SAT 97
[2025-08-22 09:00] VITALS: BP 121/80; PULSE 76; RESP 18; TEMP 97.8; O2SAT 97
[2025-08-22] MEDS ORDERED: PANT40T PO (11:30)
[2025-08-22] MEDS ORDERED: SUCR1TAB31 OR (11:31)
--- NOTE | 2025-08-22 11:31 | DVHPN2 ---
Reviewed: Care Plan, H&P, Labs, Medications, Previous Orders, Radiology Changes from previous H/P or p: No Changes Gastrointestinal: Nausea, Vomiting Skin: Other Objective Vitals Vital Signs Date Time Temp Pulse Resp B/P (MAP) Pulse Ox O2 Delivery O2 Flow Rate FiO2 08/22/25 09:16 120/81 08/22/25 09:00 97.8 76 18 97 97.8 08/22/25 08:00 Room Air* 0 21 Intake/Output Intake and Output 08/22/25 07:00 Intake Total 1620 ml Balance 1620 ml Intake Oral 1270 ml IV Total 350 ml # Voids 6 # Bowel Movements 4 Medications Current Medications Medications Dose Ordered Sig/Beverly Route Start Time Stop Time Status Last Admin Dose Admin Amlodipine Besylate 5 mg DAILY PO 08/17/25 10:00 08/22/25 09:16 5 MG Gabapentin 300 mg TID PO 08/17/25 06:00 08/22/25 06:32 300 MG Lisinopril 20 mg DAILY PO 08/17/25 10:00 08/22/25 09:16 20 MG Ceftriaxone Sodium 50 ml @ 100 mls/hr DAILY@09 IV 08/17/25 09:00 08/22/25 09:16 100 MLS/HR Diagnostic Test (Pha) 1 strip ACHS 08/17/25 07:00 08/22/25 06:35 1 STRIP Insulin Human Regular HS SC 08/17/25 22:00 08/21/25 21:52 8 UNITS Insulin Human Regular AC SC 08/17/25 07:00 08/22/25 06:42 6 UNITS Dextrose 50 ml UD PRN IV 08/16/25 22:45 Acetaminophen/ Hydrocodone Bitart 1 tab Q4HP PRN PO 08/16/25 22:45 Ondansetron HCl 4 mg Q4HP PRN IV 08/16/25 22:45 08/18/25 16:17 4 MG Docusate Sodium 100 mg BIDPRN PRN PO 08/16/25 22:45 Acetaminophen 650 mg Q6HP PRN PO 08/16/25 22:45 Nitroglycerin 0.4 mg Q5MINP PRN SL 08/17/25 00:00 Morphine Sulfate 2 mg Q30M PRN IV 08/17/25 00:00 Metronidazole 100 ml @ 100 mls/hr Q8HR IV 08/17/25 14:00 08/22/25 06:32 100 MLS/HR Lactated Ringer's 1,000 ml @ 125 mls/hr Q8H IV 08/17/25 12:45 08/21/25 12:45 125 MLS/HR Pantoprazole Sodium 40 mg BID IV 08/18/25 22:00 08/22/25 09:16 40 MG Clonidine HCl 0.2 mg Q6HP PRN PO 08/19/25 16:30 08/22/25 06:34 0.2 MG Sucralfate 1 gm QID@0600,1130,1700,2200 PO 08/20/25 17:00 08/21/25 17:14 1 GM Laboratory Results Laboratory Tests 08/22/25 06:06 Chemistry Test 08/22/25 06:06 Albumin 3.5 g/dL (3.2-4.8) Calcium Level 9.4 mg/dL (8.7-10.4) Total Protein 6.0 g/dL (5.7-8.2) LFT Test 08/22/25 06:06 Alanine Aminotransferase (ALT) 22 U/L (7-40) Alkaline Phosphatase 93 U/L (46-116) Aspartate Amino Transferase (AST) 18 U/L (13-40) Total Bilirubin 0.4 mg/dL (0.2-1.0) Urinalysis Test 08/17/25 08:00 Urine Color Yellow (Yellow) Urine Clarity Clear (Clear) Urine pH 6.0 (5.0-9.0) Urine Specific [place] 1.031 (1.001-1.035) Urine Protein Trace (Negative) H Urine Ketones 2+ (Negative) H Urine Blood Negative /uL (Negative) Urine Nitrite Negative (Negative) Urine Bilirubin Negative (Negative) Urine Urobilinogen 2 mg/dL (Negative) H Urine Leukocyte Esterase Negative /uL (Negative) Urine RBC 1 /hpf (0 - 3) Urine Microscopic WBC 1 /HPF (0-3) Urine Squamous Epithelial Cells Few /hpf (<5) Urine Bacteria None seen /hpf (None Seen) Urine Glucose 4+ mg/dL (Normal) H Microbiology Microbiology Date/Time Source Procedure Growth Status 08/16/25 22:27 Foot Left Gram Stain - Final Complete 08/16/25 22:27 Wound Culture - Final Proteus mirabilis Escherichia coli Enterococcus faecalis Complete 08/16/25 21:00 Blood Blood Culture - Final NO GROWTH AFTER 5 DAYS OF INCUBATION. Complete Labs and/or images reviewed: Labs reviewed by me, Image(s) reviewed by me Assessment/Plan Assessment/Plan Sepsis unknown etiology Acute abdominal pain nausea vomiting and diarrhea lipase normal, CT abdomen pelvis without contrast shows possible duodenal ulcer, GI consult for Dr. Amarilis Parra; pantoprazole 40 mg IV b.i.d. Carafate EGD by Dr. Amarilis Parra shows: 1. 3 cm sliding-type hiatal hernia with the acute grade C linear erosive esophagitis with linear esophageal ulcers extending into the distal 10 cm of the esophagus from which biopsies were obtained 2. Moderate duodenitis with multiple superficial duodenal ulcers in the duodenal bulb and postbulbar area ; mild gastritis Possible acute Gastroenteritis: Rocephin Flagyl IV Dysphagia History of H pylori gastritis Diabetes: Insulin sliding scale Acute Hypokalemia: Potassium 3.2: Replace potassium Acute dehydration: LR 150 per hour Hypertension Chronic left foot ulcer Flu test negative COVID test negative Time spent 50 minutes Advanced care planning time 20 minutes Patient is full code Plan discussed with: Patient Date of Service: Aug 22, 2025 Billing Provider: JHON HAIR MD Common Visit Codes: [id number] INP/OBS CARE(HIGH) JHON HAIR MD Aug 22, 2025 11:31
--- NOTE | 2025-08-22 11:35 | DVHDS2 ---
Discharge Summary Date of Admission Aug 16, 2025 at 23:52 Date of Discharge: Aug 22, 2025 Admitting Diagnosis Abdominal pain nausea and vomiting Wounds: EGD Labs/Diagnostic Data: Laboratory Results Test 08/22/25 06:06 08/22/25 05:52 08/18/25 15:07 08/17/25 12:54 White Blood Count 6.9 10^3/uL (4.4-10.8) Red Blood Count 5.71 10^6/uL (4.5-5.90) Hemoglobin 13.7 g/dL (13.5-17.5) Hematocrit 44.0 % (41.0-53.0) Mean Corpuscular Volume 77.2 fL (80.0-100.0) Mean Corpuscular Hemoglobin 23.9 pg (28.0-32.0) Mean Corpuscular Hemoglobin Concent 31.0 g/dL (32.0-36.0) Red Cell Distribution Width 23.1 % (11.8-14.3) Platelet Count 146 10^3/uL (140-450) Mean Platelet Volume 8.5 fL (6.9-10.8) Neutrophils (%) (Auto) 72.4 % (37.0-80.0) Lymphocytes (%) (Auto) 16.2 % (10.0-50.0) Monocytes (%) (Auto) 7.6 % (0.0-12.0) Eosinophils (%) (Auto) 3.3 % (0.0-7.0) Basophils (%) (Auto) 0.5 % (0.0-2.0) Neutrophils # (Auto) 5.0 10 ^3/uL (1.6-8.6) Lymphocytes # (Auto) 1.1 10 ^3/uL (0.4-5.4) Monocytes # (Auto) 0.5 10 ^3/uL (0-1.3) Eosinophils # (Auto) 0.2 10 ^3/uL (0-0.8) Basophils # (Auto) 0 10 ^3/uL (0-0.2) Nucleated Red Blood Cells 0.1 % Sodium Level 142 mmol/L (136-145) Potassium Level 3.6 mmol/L (3.5-5.1) Chloride Level 106 mmol/L (98-107) Carbon Dioxide Level 27 mmol/L (20-31) Anion Gap 9 (5-15) Blood Urea Nitrogen 10 mg/dL (9-23) Creatinine 0.87 mg/dL (0.700-1.30) Glomerular Filtration Rate Calc 93 mL/min (>90) BUN/Creatinine Ratio 11.5 (10.0-20.0) Serum Glucose 205 mg/dL (74-106) Calcium Level 9.4 mg/dL (8.7-10.4) Total Bilirubin 0.4 mg/dL (0.2-1.0) Aspartate Amino Transferase (AST) 18 U/L (13-40) Alanine Aminotransferase (ALT) 22 U/L (7-40) Alkaline Phosphatase 93 U/L (46-116) Total Protein 6.0 g/dL (5.7-8.2) Albumin 3.5 g/dL (3.2-4.8) POC Glucose 216 mg/dl (70-106) Prothrombin Time 13.1 sec (9.3-11.8) Prothrombin Time INR 1.26 (0.9-1.15) Influenza Type A Antigen Negative (Negative) Influenza Type B Antigen Negative (Negative) SARS-CoV-2 Antigen (Rapid) Negative (NEGATIVE) Test 08/17/25 08:00 08/17/25 02:34 08/16/25 20:53 08/16/25 19:03 Urine Color Yellow (Yellow) Urine Clarity Clear (Clear) Urine pH 6.0 (5.0-9.0) Urine Specific [place] 1.031 (1.001-1.035) Urine Protein Trace (Negative) Urine Ketones 2+ (Negative) Urine Blood Negative /uL (Negative) Urine Nitrite Negative (Negative) Urine Bilirubin Negative (Negative) Urine Urobilinogen 2 mg/dL (Negative) Urine Leukocyte Esterase Negative /uL (Negative) Urine RBC 1 /hpf (0 - 3) Urine Microscopic WBC 1 /HPF (0-3) Urine Squamous Epithelial Cells Few /hpf (<5) Urine Bacteria None seen /hpf (None Seen) Urine Glucose 4+ mg/dL (Normal) Lipase 26 U/L (12-53) Lactic Acid Level 1.4 mmol/L (0.4-2.0) Troponin I High Sensitivity 18 ng/L (</=54) Other Laboratory Tests 08/22/25 06:06 Brief Hx & Hospital Course: 70-year-old male with a history of H pylori gastritis diabetes hypotension chronic left foot 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 CT abdomen pelvis without contrast showed possible duodenal ulcer EGD GI Dr. Amarilis Parra confirmed presence of duodenal ulcer and moderate duodenitis with a multiple superficial duodenal ulcers and also 3 cm sliding-type hiatal hernia with a grade C linear erosive esophagitis with a esophageal ulcers placed on pantoprazole and Carafate acute dehydration resolved flu test negative COVID test negative patient is being discharged home on pantoprazole and Carafate he does not want to iron tablets and he says he gets nausea with the iron tablets. He will follow up with GI Dr. Amarilis Parra in 10 days for the biopsy result Consults/Reason for consult GI Dr. Amarilis Parra Operations or Procedures EGD Condition at Discharge: Fair Final Diagnosis/Problems List Sepsis unknown etiology Acute abdominal pain nausea vomiting and diarrhea lipase normal, CT abdomen pelvis without contrast shows possible duodenal ulcer, GI consult for Dr. Amarilis Parra; pantoprazole 40 mg IV b.i.d. Carafate EGD by Dr. Amarilis Parra shows: 1. 3 cm sliding-type hiatal hernia with the acute grade C linear erosive esophagitis with linear esophageal ulcers extending into the distal 10 cm of the esophagus from which biopsies were obtained 2. Moderate duodenitis with multiple superficial duodenal ulcers in the duodenal bulb and postbulbar area ; mild gastritis Possible acute Gastroenteritis: Rocephin Flagyl IV Dysphagia History of H pylori gastritis Diabetes: Insulin sliding scale Acute Hypokalemia: Potassium 3.2: Replace potassium Acute dehydration: LR 150 per hour Hypertension Chronic left foot ulcer Flu test negative COVID test negative Discharge Disposition: Home Discharge Instruct/Medications Diet: Consistent carbohydrate, Cardiac 2g Na,low cholest Activity: Light activity Follow Up/Referral: Follow up with the primary Dr in one week Follow up with the GI Dr. Amarilis Parra in 10 days for the biopsy result Medications: Pantoprazole Carafate Sent to [facility] Scheduled Amlodipine Besylate (Amlodipine Besylate), 1 TAB PO DAILY Amlodipine Besylate (Norvasc Tablet), 5 MG PO DAILY Benazepril Hcl (Benazepril Hcl), 80 MG PO DAILY Gabapentin (Gabapentin), 300 MG PO TID, (Reported) Hydrocodone-Acetaminophen (Hydrocodone/Acetaminophen), 1 TAB PO PRN, (Reported) Insulin Glargine (Lantus), 50 UNITS SC QAM, (Reported) Metformin Hydrochloride (Metformin Hcl), 1 TAB PO BID, (Reported) Metoprolol Tartrate (Metoprolol Tartrate), 100 MG PO BID, (Reported) Pantoprazole Sodium Sesquihydr (Pantoprazole Sodium), 40 MG PO BID Sucralfate (Carafate), 1 GM OR QID Tamsulosin Hcl (Tamsulosin Hcl), 0.4 MG PO QPM, (Reported) Zolpidem Tartrate (Zolpidem Tartrate), 10 MG PO QPM, (Reported) 39 (Time Taken for discharge summary 39 minutes) Discharge Statement: "Patient was advised to return to the ER or call 911 if any headaches, dizziness, shortness of breath, chest pain, abdominal pain, bleeding, fevers, or worsening of medical condition. Patient was counseled about treatment plan, medications, possible side effects, patientverbalized understanding. All questions were answered to the best of my ability. This discharge took greater then 30 minutes in planning, reviewing documentation, counseling the patient, and discussing with other team members." ASSESSMENT ASSESSMENT Hospital Course Improved Assessment Sepsis unknown etiology Acute abdominal pain nausea vomiting and diarrhea lipase normal, CT abdomen pelvis without contrast shows possible duodenal ulcer, GI consult for Dr. Amarilis Parra; pantoprazole 40 mg IV b.i.d. Carafate EGD by Dr. Amarilis Parra shows: 1. 3 cm sliding-type hiatal hernia with the acute grade C linear erosive esophagitis with linear esophageal ulcers extending into the distal 10 cm of the esophagus from which biopsies were obtained 2. Moderate duodenitis with multiple superficial duodenal ulcers in the duodenal bulb and postbulbar area ; mild gastritis Possible acute Gastroenteritis: Rocephin Flagyl IV Dysphagia History of H pylori gastritis Diabetes: Insulin sliding scale Acute Hypokalemia: Potassium 3.2: Replace potassium Acute dehydration: LR 150 per hour Hypertension Chronic left foot ulcer Flu test negative COVID test negative Date of Service: Aug 22, 2025 Billing Provider: JHON HAIR MD Common Visit Codes: [id number] DISCH DAY >30min JHON HAIR MD Aug 22, 2025 11:35
[2025-08-22 12:37] VITALS: BP 152/92; PULSE 68; RESP 20; TEMP 97.9; O2SAT 94
[2025-08-22 12:39] VITALS: BP 152/92; PULSE 68; RESP 20; TEMP 97.9; O2SAT 94
--- NOTE | 2025-08-22 14:43 | DVHPN2 ---
Progress Note Date Seen: Aug 22, 2025 Resident Creating Document: LOBO YANEZ RESIDENT Medical Necessity Reason Pt with a Central, PICC or Fol: No Subjective Patient reports: No new complaints Objective vital signs Vital Sign Date Time Temp Pulse Resp B/P (MAP) Pulse Ox O2 Delivery O2 Flow Rate FiO2 08/22/25 12:39 97.9 68 20 152/92 (112) 94 97.9 08/22/25 08:00 Room Air* 0 21 Total Intake and Output 08/21/25 08/21/25 08/22/25 15:00 23:00 07:00 Intake Total 250 ml 1050 ml 320 ml Balance 250 ml 1050 ml 320 ml Examination Morbidly obese male patient lying in the bed comfortably, no distress General: Obese, afebrile, palor, mucosae are moist Cardiovascular: Regular S1 and S2. No murmurs, gallops or rubs. No JVD elevation. No pedal edema Respiratory: Normal B/L air entry on room air. Clear lung sounds on auscultation Abdomen: Soft, nontender, nondistended, normoactive bowel sounds, no rebound tenderness, no organomegaly, no masses Genitourinary: Deferred laboratory and microbiology Laboratory Tests 08/22/25 06:06 Test 08/22/25 06:06 Range/Units Serum Glucose 205 H 74-106 mg/dL Microbiology Date/Time Source Procedure Growth Status 08/16/25 22:27 Foot Left Gram Stain - Final Complete 08/16/25 22:27 Wound Culture - Final Proteus mirabilis Escherichia coli Enterococcus faecalis Complete 08/16/25 21:00 Blood Blood Culture - Final NO GROWTH AFTER 5 DAYS OF INCUBATION. Complete Labs and/or images reviewed: Labs reviewed by me, Image(s) reviewed by me Problem List/Assessment/Plan Problem List/Assessment/Plan Dysphagia secondary to grade C linear erosive esophagitis Esophageal ulcers Duodenitis Hiatal hernia 3 cm sliding-type History of H pylori Sepsis due to left foot wound Wound culture growing Proteus, E coli, faecalis POSTOPERATIVE DIAGNOSES: 1. 3 cm sliding-type hiatal hernia with the acute grade C linear erosive esophagitis with linear esophageal ulcers extending into the distal 10 cm of the esophagus from which biopsies were obtained 2. Moderate duodenitis with multiple superficial duodenal ulcers in the duodenal bulb and postbulbar area ; mild gastritis Plan: Recommendation: Dr. Parra: Follow up with GI as outpatient for biopsy results, continue Protonix 40 mg p.o. b.i.d.. Carafate suspension 1 g p.o. 4 times a day. Stable to be discharged. Outpatient follow up within 4-6 weeks. Senthil soft diet Patient reports feeling better Thank you for consulting GI Case discussed with Dr. Parra Plan discussed with: Patient Dietary Evaluation Review Comments: CCHO-60 g diet texture as tolerated David BID for wound healing Expected Outcomes/Goals: controlled blood glucose, healed wounds, Sepsis reassessment post fluid Is the fluid challenge complet: Yes Date of Reassessment: Aug 17, 2025 Time of Reassessment: 7 Blood Culture Time: 2052 Time Antibiotics Given: 2207 Systolic BP: 150 Diastolic BP: 87 Blood Pressure Mean: 108 Respiration: 17 Respiratory Effort: Non-Labored Respiratory Pattern: Regular Oxygen Saturation: 95 Pulse Rate: 92 Pulse Location: Radial Pulse Strength: Normal Pulse Assessment Method: Palpation Pulse Rhythm: Regular Capillary Refill: < 3 seconds Heart Sounds: S1 & S2 Breath sounds: Clear Skin Moisture: Dry Skin Tugor: WNL Skin Color: WNL LOBO YANEZ RESIDENT Aug 22, 2025 14:43
== END 2025-08-22 13:40 | disposition home or self-care (01) | DRG 871 ==
LOC: EDUNIT# 16:27 → EDBD 16:27 → ER 16:27 → OVERFLOW 23:52 → WEST WING 08-17 16:13
PROVIDERS: ADMIT Family Medicine; ATTEND Family Medicine
PROC: 0DB98ZX Excision of Duodenum, Via Natural or Artificial Opening Endoscopic, Diagnostic (ICD-10-PCS; 2025-08-20)
PROC: 0DB58ZX Excision of Esophagus, Via Natural or Artificial Opening Endoscopic, Diagnostic (ICD-10-PCS; 2025-08-20)
PROC: 0DB68ZX Excision of Stomach, Via Natural or Artificial Opening Endoscopic, Diagnostic (ICD-10-PCS; principal; 2025-08-20 13:23)
DX: A41.9 Sepsis, unspecified organism (principal); J96.00 Acute respiratory failure, unspecified whether with hypoxia or hypercapnia; K22.10 Ulcer of esophagus without bleeding; K26.9 Duodenal ulcer, unspecified as acute or chronic, without hemorrhage or perforation; E11.65 Type 2 diabetes mellitus with hyperglycemia; I10 Essential (primary) hypertension; E11.621 Type 2 diabetes mellitus with foot ulcer; E86.0 Dehydration; Z20.822 Contact with and (suspected) exposure to COVID-19; E87.6 Hypokalemia; L97.529 Non-pressure chronic ulcer of other part of left foot with unspecified severity; K52.9 Noninfective gastroenteritis and colitis, unspecified; K44.9 Diaphragmatic hernia without obstruction or gangrene; K29.80 Duodenitis without bleeding; K29.70 Gastritis, unspecified, without bleeding; Z87.891 Personal history of nicotine dependence; Z86.19 Personal history of other infectious and parasitic diseases; Z80.9 Family history of malignant neoplasm, unspecified
CPT/HCPCS: 36415; 43239; 71045; 74176; 80048; 80053; 81001; 82962; 83605; 83690; 84484; 85025; 85610; 87040; 87077; 87081; 87186; 87205; 87426; 87804; 88341; 93005; 96365; 96375; 99291; G0378; J1815; J2250; J2405; J2470; J2704; J3490